=== PATIENT | male | born 1960 | race Caucasian/White ===

== ENCOUNTER 2017-03-20 14:28 | Emergency (ER) | payer BC, SELFPAY ==
--- NOTE | 2017-03-20 14:56 | HMH.EDUTC ---
[facility] [place] Clinical Impression: Right otitis media Qualifiers: Otitis media type: suppurative Chronicity: acute Recurrence: not specified as recurrent Spontaneous tympanic membrane rupture: without spontaneous rupture Qualified Code(s): H66.001 - Acute suppurative otitis media without spontaneous rupture of ear drum, right ear Disposition: Home, Self-Care Condition on Discharge: Good Instructions: DI for Otitis Media (Middle Ear Infection)-Child Prescriptions: Amoxicillin/Potassium Clav [Augmentin 875-125 Tablet] 1 tab PO Q12H 10 Days #20 tab methylPREDNISolone [Medrol] 4 mg PO DIRECTED 6 Days #1 tab.ds.pk Time of Disposition: 15:02 Medical Decision Making - Medical Records Medical records reviewed: Yes: I reviewed the patient's medical records. - Chaitanya Inquiry Pt receiving controlled substance: No [facility] [place] - General Stated complaint: ear pain Time Seen by Provider: 03/20/17 14:49 Mode of Arrival: Ambulatory Source of Information: Patient, Spouse Limitations: No Limitations HEENT Symptoms (Recalled from RN notes): Yes Resp Symptoms (Recalled from RN notes): No Skin Symptoms (Recalled from RN notes): No GI/ Symptoms (Recalled from RN notes): No MS Symptoms (Recalled from RN notes): No Card Symptoms (Recalled from RN notes): No Other (Recalled from RN notes): No - History of Present Illness Provider Complaint: Right sinus pain, right ear pain and right side of head has been hurting for about a week. No rash. Had similar episode in other ear a few months ago. No fever. Denies sore throat. Denies cough. Denies vomiting or diarrhea. - Related Data Previous Rx's Medication Instructions Recorded meloxicam 7.5 mg tablet 7.5 mg PO DAILY PRN #30 tab 03/18/17 Amoxicillin/Potassium Clav 1 tab PO Q12H 10 Days #20 tab 03/20/17 [Augmentin 875-125 Tablet] methylPREDNISolone [Medrol] 4 mg PO DIRECTED 6 Days #1 03/20/17 tab.ds.pk Allergies Allergy/AdvReac Type Severity Reaction Status Date / Time No Known Allergies Allergy Unverified 03/18/17 13:00 [facility] History I have reviewed the patient's past medical history: Yes ROS Obtained: Yes All systems reviewed & no additional complaints - Constitutional Constitutional: Denies body ache, Denies chills, Denies fever(s) - ENT Ears, Nose, Mouth, and Throat: Reports otalgia, Reports nasal congestion, Denies sore throat - Respiratory Respiratory: No cough - Integumentary/Breasts Skin/Breast: Denies rash Physical Exam - General General appearance: alert, in no apparent distress - Head Head exam: atraumatic, normocephalic, normal inspection - Eye Eye exam: Present: normal appearance, PERRL, EOMI - ENT ENT exam: Present: normal exam, normal oropharynx, mucous membranes moist, normal external ear exam - Expanded ENT Exam TM/Canal exam: Right TM: erythema, bulging - Neck Neck exam: Present: normal inspection, full ROM, trachea midline. Absent: meningismus, lymphadenopathy - Chest Chest inspection: Present: normal inspection, symmetric chest wall rise. Absent: tenderness - Respiratory Respiratory exam: Present: normal lung sounds bilaterally. Absent: respiratory distress - Cardiovascular Cardiovascular exam: Present: regular rate, normal rhythm. Absent: JVD - Abdominal Exam Abdominal exam: Present: soft, normal bowel sounds. Absent: distention, tenderness, guarding - Extremities Exam Extremities exam: Present: normal inspection, full ROM, normal capillary refill. Absent: calf tenderness - Back Exam Back exam: Present: normal inspection. Absent: tenderness - Neurological Exam Neurological exam: Present: alert, oriented X3 - Psychiatric Psychiatric exam: Present: normal affect, normal mood - Skin Skin exam: Present: warm, dry, intact, normal color - Lymphatic Lymphatic Findings: no adenopathy
--- NOTE | 2017-03-20 15:00 | ED_ITS ---
[facility] [place] Clinical Impression: Right otitis media Qualifiers: Otitis media type: suppurative Chronicity: acute Recurrence: not specified as recurrent Spontaneous tympanic membrane rupture: without spontaneous rupture Qualified Code(s): H66.001 - Acute suppurative otitis media without spontaneous rupture of ear drum, right ear Disposition: Home, Self-Care Condition on Discharge: Good Instructions: DI for Otitis Media (Middle Ear Infection)-Child Prescriptions: Amoxicillin/Potassium Clav [Augmentin 875-125 Tablet] 1 tab PO Q12H 10 Days #20 tab methylPREDNISolone [Medrol] 4 mg PO DIRECTED 6 Days #1 tab.ds.pk Time of Disposition: 15:02 Medical Decision Making - Medical Records Medical records reviewed: Yes: I reviewed the patient's medical records. - Chaitanya Inquiry Pt receiving controlled substance: No [facility] [place] - General Stated complaint: ear pain Time Seen by Provider: 03/20/17 14:49 Mode of Arrival: Ambulatory Source of Information: Patient, Spouse Limitations: No Limitations HEENT Symptoms (Recalled from RN notes): Yes Resp Symptoms (Recalled from RN notes): No Skin Symptoms (Recalled from RN notes): No GI/ Symptoms (Recalled from RN notes): No MS Symptoms (Recalled from RN notes): No Card Symptoms (Recalled from RN notes): No Other (Recalled from RN notes): No - History of Present Illness Provider Complaint: Right sinus pain, right ear pain and right side of head has been hurting for about a week. No rash. Had similar episode in other ear a few months ago. No fever. Denies sore throat. Denies cough. Denies vomiting or diarrhea. - Related Data Previous Rx's Medication Instructions Recorded meloxicam 7.5 mg tablet 7.5 mg PO DAILY PRN #30 tab 03/18/17 Amoxicillin/Potassium Clav 1 tab PO Q12H 10 Days #20 tab 03/20/17 [Augmentin 875-125 Tablet] methylPREDNISolone [Medrol] 4 mg PO DIRECTED 6 Days #1 03/20/17 tab.ds.pk Allergies Allergy/AdvReac Type Severity Reaction Status Date / Time No Known Allergies Allergy Unverified 03/18/17 13:00 [facility] [place] History I have reviewed the patient's past medical history: Yes ROS Obtained: Yes All systems reviewed & no additional complaints - Constitutional Constitutional: Denies body ache, Denies chills, Denies fever(s) - ENT Ears, Nose, Mouth, and Throat: Reports otalgia, Reports nasal congestion, Denies sore throat - Respiratory Respiratory: No cough - Integumentary/Breasts Skin/Breast: Denies rash Physical Exam - General General appearance: alert, in no apparent distress - Head Head exam: atraumatic, normocephalic, normal inspection - Eye Eye exam: Present: normal appearance, PERRL, EOMI - ENT ENT exam: Present: normal exam, normal oropharynx, mucous membranes moist, normal external ear exam - Expanded ENT Exam TM/Canal exam: Right TM: erythema, bulging - Neck Neck exam: Present: normal inspection, full ROM, trachea midline. Absent: meningismus, lymphadenopathy - Chest Chest inspection: Present: normal inspection, symmetric chest wall rise. Absent : tenderness - Respiratory Respiratory exam: Present: normal lung sounds bilaterally. Absent: respiratory distress - Cardiovascular Cardiovascular exam: Present: regular rate, normal rhythm. Absent: JVD - Abdominal Exam Abdominal exam: Present: soft, normal bowel sounds. Absent: distention, tenderness, guarding - Extrem
[2017-03-20 15:12] VITALS: BP 126/64; PULSE 68; RESP 20; TEMP 36.7; O2SAT 96; BMI 28.7
[2017-03-20 15:15] VITALS: BP 126/64; PULSE 68; RESP 20; TEMP 36.7; O2SAT 96
== END 2017-03-20 15:16 | disposition home or self-care (01) ==
PROVIDERS: Emergency Provider Physician Assistant
DX: H66.001 Acute suppurative otitis media without spontaneous rupture of ear drum, right ear (principal)
CPT/HCPCS: 99202

== ENCOUNTER → 2017-07-16 09:56 | Outpatient (CLI) | payer BC, SELFPAY ==
--- NOTE | 2017-07-16 12:00 | CT_ITS ---
CT abdomen pelvis wo con Ordering Physician: Daniel Scanlon Patient Age: 56 years: Male HISTORY: ITS.REASON: LLQ PAIN Left lower quadrant pain 2.5 months. Possible diverticulitis. Oral contrast only. No IV. TECHNIQUE: Helical CT scanning performed at abdomen and pelvis oral contrast only. No IV contrast. Axial sagittal and coronal reconstructions performed on CT workstation. All CT scans at this facility used one or more dose reduction techniques , viz: automatic exposure control, ma/Kv adjustment per patient's size, (including targeted exam where dose matched to the indication; i.e. head); or iterative reconstruction technique COMPARISON :None FINDINGS Lung bases. Mild bibasilar dependent atelectasis. No prominent findings. No pleural effusion. Heart normal size Suggestion of small sliding hiatal hernia abdomen./Pelvis Noncontrast images of the liver, pancreas kidneys unremarkable. Spleen normal size, w/ numerous granulomatous calcifications GI tract/findings abnormalities although this may reflect diverticulitis proximal sigmoid colon other entities will need to be excluded subsequently.: . Mild Inflammation, at and about proximal sigmoid colon. Roughly 11-12 mm area focal bulging posteriorly, superiorly from the proximal sigmoid colon which at this point most likely reflects an inflamed diverticulum. Haziness is most pronounced pericolic fat about this feature. There is mild wall thickening throughout this region of sigmoid colon but which may reflect some residual colitis associated.. Would be very important to perform colonoscopy in follow-up to exclude associated or underlying pathology Minor fatty wall thickening more proximally at descending colon nonspecific but can reflect mild chronic inflammation at. Oral contrast is reached the right colon. The right colon unremarkable. Small bowel: Increased fluid with a few air-fluid levels within slightly distended small bowel loops most notable evident LLQ. Likely reflect mild ileus in this region towards left lower quadrant.. Mesentery: No mesenteric adenopathy but there is Very subtle groundglass hazy appearance seen at the root of the mesentery on but nonspecific. Scattered moderate retroperitoneal lymph nodes bilaterallyq x-rays the most evident scattered nodes are seen just posterior to the IVC with one of the larger nodes measuring up to 16 mm x 12 mm immediate posterior to the IVC. These will warrant follow-up to exclude any developing adenopathy. Smaller nodes are seen at the left para-aortic region nonspecific. Aorta dilates very slightly up to 2.3 cm maximally just above the aortic bifurcation Osseous structures. No prominent findings. A small 7.5 mm lucent area at the right pedicle T12 on axial image 27 is noted. Nonspecific could merely be a small cyst or volume averaging which should be catheter in mind if the patient should develop any additional pain or other pathology discovered elsewhere IMPRESSION 1. Focal area bulging from proximal sigmoid colon,. Inflammation is seen about this region as well as throughout the adjacent thickened sigmoid colon suspect diverticulitis at this point, but follow-up will be very important to exclude other pathology (Although this may be due to diverticular disease and does not have a definitive appearance for such. Patient has few if any additional diverticula sigmoid colon, & it does not have ideal typical fluid-filled inflamed diverticulum appearance. Still this should initially treated & addressed as area limited acute diverticulitis but it will be very important for follow-up colonoscopy to exclude associated or underlying pathology ..) Wall thickening and mild pericolic inflammation is seen about this region. 2. A few air-fluid levels within
== END ==
PROVIDERS: PCP Internal Medicine; Visit Provider Internal Medicine
DX: R10.32 Left lower quadrant pain (principal)
CPT/HCPCS: 74176

== ENCOUNTER 2017-09-22 09:46 | Outpatient (CLI) | payer BC, SELFPAY ==
[2017-09-22 09:50] VITALS: BP 118/71; PULSE 61; RESP 20; TEMP 36.4; O2SAT 98
[2017-09-22 10:02] VITALS: BMI 29.0
[2017-09-22 10:40] VITALS: BP 129/69; PULSE 61; RESP 20; TEMP 36.4; O2SAT 99
[2017-09-22 10:53] LABS: Blood Urea Nitrogen 13 mg/dL (7-18); Calcium 9.2 mg/dL (8.5-10.1); Carbon Dioxide 27 mmol/L (21.0-32.0); Chloride 104 mmol/L (98-107); Creatinine Clearance Estimated 102 mL/min (0-300); Creatinine,Serum 1.07 mg/dL (0.70-1.30); Estimated Glomerular Filt Rate 72 ml/min (>60); GFR (African American) 87 ML/MIN (>60); Glucose 103 mg/dL (74-106); Sodium 140 mmol/L (136-145)
[2017-09-22 10:55] VITALS: BP 139/87; PULSE 61; RESP 20; TEMP 36.4; O2SAT 98
--- NOTE | 2017-09-22 11:19 | XR_ITS ---
XR chest portable PICC plac HISTORY: ITS.REASON: PICC line placement ORDERING PHYSICIAN: Roshan Guzman PATIENT AGE: 56 years COMPARISON: None FINDINGS: Right upper extremity PICC line has been placed. The tip is in good position in region of the superior vena cava. Unremarkable cardiovascular structures with clear lungs. No acute bony anomalies IMPRESSION: Good placement of PICC line with no acute cardiac or pulmonary findings
[2017-09-22 11:25] VITALS: BP 138/78; PULSE 63; RESP 20; TEMP 36.4; O2SAT 99
[2017-09-22 11:48] VITALS: BP 128/76; PULSE 60; RESP 20; TEMP 36.4; O2SAT 99
== END 2017-09-22 11:49 | disposition home or self-care (01) ==
LOC: INF 09:48
PROVIDERS: PCP Internal Medicine; Visit Provider Colon & Rectal Surgery
DX: K57.92 Diverticulitis of intestine, part unspecified, without perforation or abscess without bleeding (principal)
CPT/HCPCS: 36569; 71045; 80048; 96365; C1751; J1335

== ENCOUNTER 2017-09-23 09:51 | Outpatient (CLI) | payer BC, SELFPAY ==
[2017-09-23 10:06] VITALS: BP 119/74; PULSE 61; RESP 18; TEMP 36.6; O2SAT 96
[2017-09-23 10:50] VITALS: BP 129/79; PULSE 62; RESP 18; TEMP 36.6; O2SAT 97
== END 2017-09-23 10:50 | disposition home or self-care (01) ==
LOC: INF 09:51
PROVIDERS: PCP Internal Medicine; Visit Provider Colon & Rectal Surgery
DX: K57.92 Diverticulitis of intestine, part unspecified, without perforation or abscess without bleeding (principal)
CPT/HCPCS: 96365; J1335

== ENCOUNTER 2017-09-24 11:06 | Outpatient (CLI) | payer BC, SELFPAY ==
[2017-09-24 11:08] VITALS: BP 141/78; PULSE 72; RESP 20; TEMP 36.4; O2SAT 99; BMI 29.0
[2017-09-24 11:57] VITALS: BP 112/71; PULSE 64; RESP 20; TEMP 36.6; O2SAT 98
== END 2017-09-24 11:59 | disposition home or self-care (01) ==
LOC: INF 11:06
PROVIDERS: PCP Internal Medicine; Visit Provider Colon & Rectal Surgery
DX: K57.92 Diverticulitis of intestine, part unspecified, without perforation or abscess without bleeding (principal)
CPT/HCPCS: 96365; J1335

== ENCOUNTER 2017-09-25 07:42 | Outpatient (CLI) | payer BC, SELFPAY ==
[2017-09-25 08:20] VITALS: BP 123/86; PULSE 74; RESP 16; TEMP 36.7; O2SAT 98; BMI 29.0
[2017-09-25 09:20] VITALS: BP 128/73; PULSE 77; RESP 18; TEMP 36.7; O2SAT 99
== END 2017-09-25 09:30 | disposition home or self-care (01) ==
LOC: INF 07:43
PROVIDERS: PCP Internal Medicine; Visit Provider Colon & Rectal Surgery
DX: K57.92 Diverticulitis of intestine, part unspecified, without perforation or abscess without bleeding (principal)
CPT/HCPCS: 96365; J1335

== ENCOUNTER → 2017-09-26 08:30 | Outpatient (CLI) | payer BC, SELFPAY ==
[2017-09-26 08:46] VITALS: BP 109/62; PULSE 71; RESP 18; TEMP 36.8; O2SAT 95; BMI 29.0
[2017-09-26 09:30] VITALS: BP 149/83; PULSE 61; RESP 18; TEMP 36.8; O2SAT 97
== END ==
PROVIDERS: PCP Internal Medicine; Visit Provider Colon & Rectal Surgery
DX: K57.92 Diverticulitis of intestine, part unspecified, without perforation or abscess without bleeding (principal)
CPT/HCPCS: 96365; J1335

== ENCOUNTER 2017-09-27 11:35 | Outpatient (CLI) | payer BC, SELFPAY ==
[2017-09-27 12:05] VITALS: BP 117/69; PULSE 77; RESP 18; O2SAT 96
[2017-09-27 12:45] VITALS: BP 113/66; PULSE 70; RESP 18
== END 2017-09-27 13:00 | disposition home or self-care (01) ==
LOC: INF 11:55
PROVIDERS: PCP Internal Medicine; Visit Provider Colon & Rectal Surgery
DX: K57.92 Diverticulitis of intestine, part unspecified, without perforation or abscess without bleeding (principal)
CPT/HCPCS: 96365; J1335

== ENCOUNTER 2017-09-28 13:19 | Outpatient (CLI) | payer BC, SELFPAY ==
[2017-09-28 13:15] VITALS: BP 118/69; PULSE 79; RESP 18; TEMP 36.7; O2SAT 96; BMI 29.0
[2017-09-28 14:08] VITALS: BP 122/67; PULSE 81; RESP 18; O2SAT 97
[2017-09-28 14:35] VITALS: BP 116/64; PULSE 77; RESP 18; O2SAT 97
== END 2017-09-28 14:40 | disposition home or self-care (01) ==
LOC: INF 13:19
PROVIDERS: PCP Internal Medicine; Visit Provider Colon & Rectal Surgery
DX: K57.92 Diverticulitis of intestine, part unspecified, without perforation or abscess without bleeding (principal)
CPT/HCPCS: 96365; J1335

== ENCOUNTER 2017-09-29 08:49 | Outpatient (CLI) | payer BC, SELFPAY ==
[2017-09-29 09:21] VITALS: BP 114/73; PULSE 68; RESP 18; TEMP 36.5; O2SAT 99
[2017-09-29 09:46] VITALS: BP 117/67; PULSE 69; RESP 18; O2SAT 99
[2017-09-29 09:55] VITALS: BP 116/69; PULSE 64; RESP 18; O2SAT 99
== END 2017-09-29 10:00 | disposition home or self-care (01) ==
LOC: INF 08:49
PROVIDERS: PCP Internal Medicine; Visit Provider Colon & Rectal Surgery
DX: K57.92 Diverticulitis of intestine, part unspecified, without perforation or abscess without bleeding (principal)
CPT/HCPCS: 96365; J1335

== ENCOUNTER 2017-09-30 08:52 | Outpatient (CLI) | payer BC, SELFPAY ==
[2017-09-30 09:08] VITALS: BP 125/70; PULSE 68; RESP 18; TEMP 36.7; O2SAT 97
[2017-09-30 09:38] VITALS: BP 122/69; PULSE 69; RESP 18; O2SAT 97
[2017-09-30 09:45] VITALS: BP 121/72; PULSE 65; RESP 18; O2SAT 97
== END 2017-09-30 09:50 | disposition home or self-care (01) ==
LOC: INF 08:52
PROVIDERS: PCP Internal Medicine; Visit Provider Colon & Rectal Surgery
DX: K57.92 Diverticulitis of intestine, part unspecified, without perforation or abscess without bleeding (principal)
CPT/HCPCS: 96365; J1335

== ENCOUNTER 2017-10-01 08:14 | Outpatient (CLI) | payer BC, SELFPAY ==
[2017-10-01 08:35] VITALS: BP 150/95; PULSE 79; RESP 18; TEMP 36.6; O2SAT 96
[2017-10-01 09:05] VITALS: BP 134/79; PULSE 67; RESP 18; O2SAT 98
[2017-10-01 09:20] VITALS: BP 131/77; PULSE 69; RESP 18; O2SAT 97
== END 2017-10-01 09:20 | disposition home or self-care (01) ==
LOC: INF 08:14
PROVIDERS: PCP Internal Medicine; Visit Provider Colon & Rectal Surgery
DX: K57.92 Diverticulitis of intestine, part unspecified, without perforation or abscess without bleeding (principal)
CPT/HCPCS: 96365; J1335

== ENCOUNTER → 2017-10-02 08:05 | Outpatient (CLI) | payer BC, SELFPAY ==
[2017-10-02 08:05] VITALS: BP 119/72; PULSE 64; RESP 18; TEMP 36.7; O2SAT 97
[2017-10-02 08:43] VITALS: BP 125/72; PULSE 69; RESP 18; TEMP 36.8; O2SAT 98; BMI 29.2
== END ==
PROVIDERS: PCP Internal Medicine; Visit Provider Colon & Rectal Surgery
DX: K57.92 Diverticulitis of intestine, part unspecified, without perforation or abscess without bleeding (principal)
CPT/HCPCS: 96365; G0463; J1335

== ENCOUNTER → 2017-10-03 08:04 | Outpatient (CLI) | payer BC, SELFPAY ==
[2017-10-03 08:17] VITALS: BP 122/75; PULSE 70; RESP 20; TEMP 36.6; O2SAT 95; BMI 29.2
[2017-10-03 08:56] VITALS: BP 115/83; PULSE 63; RESP 18; TEMP 36.7; O2SAT 95
== END ==
PROVIDERS: PCP Internal Medicine; Visit Provider Colon & Rectal Surgery
DX: K57.92 Diverticulitis of intestine, part unspecified, without perforation or abscess without bleeding (principal)
CPT/HCPCS: 96365; G0463; J1335

== ENCOUNTER 2017-10-04 08:18 | Outpatient (CLI) | payer BC, SELFPAY ==
[2017-10-04 08:28] VITALS: BP 124/75; PULSE 66; RESP 18; TEMP 36.6; O2SAT 95
[2017-10-04 08:58] VITALS: BP 119/74; PULSE 67; RESP 18; O2SAT 95
[2017-10-04 09:12] VITALS: BP 120/71; PULSE 69; RESP 18; O2SAT 96
== END 2017-10-04 09:20 | disposition home or self-care (01) ==
LOC: INF 08:18
PROVIDERS: PCP Internal Medicine; Visit Provider Colon & Rectal Surgery
DX: K57.92 Diverticulitis of intestine, part unspecified, without perforation or abscess without bleeding (principal)
CPT/HCPCS: 96365; J1335

== ENCOUNTER 2017-10-05 08:28 | Outpatient (CLI) | payer BC, SELFPAY ==
[2017-10-05 08:36] VITALS: BP 123/71; PULSE 71; RESP 18; TEMP 36.6; O2SAT 98
[2017-10-05 09:06] VITALS: BP 121/76; PULSE 76; RESP 18; O2SAT 97
[2017-10-05 09:25] VITALS: BP 124/71; PULSE 74; RESP 18; O2SAT 97
== END 2017-10-05 09:30 | disposition home or self-care (01) ==
LOC: INF 08:29
PROVIDERS: PCP Internal Medicine; Visit Provider Colon & Rectal Surgery
DX: K57.92 Diverticulitis of intestine, part unspecified, without perforation or abscess without bleeding (principal)
CPT/HCPCS: 96365; J1335

== ENCOUNTER → 2018-01-06 07:39 | Outpatient (CLI) | payer BC, SELFPAY ==
--- NOTE | 2018-01-06 08:00 | CT_ITS ---
CT abdomen pelvis wo con CLINICAL INDICATION: Lymphadenopathy, follow-up diverticulitis, wall thickening of the colon ITS.REASON: LYMPHADENOPATHY (ABNORMAL AREA T-12 VERTEBRE ORDERING PHYSICIAN: Daniel Scanlon PATIENT AGE: 57 years COMPARISON: 07/16/2017 TECHNIQUE: Axial images obtained with sagittal and coronal reformats. All CT scans at the facility use one or more dose reduction, viz: automated exposure control, ma/kV adjustment per patient size (including targeted exams where dose is matched to indication, i.e. head), or iterative reconstruction technique. PROCEDURE: Oral Contrast: None IV Contrast: None . FINDINGS: No acute finding in the lung bases. There is a small hiatal hernia. The liver, gallbladder, spleen, adrenal glands, pancreas, and kidneys have an unremarkable unenhanced appearance. There is mild diffuse infiltration of the central mesenteric fat as before consistent with taryn mesenteric sign which is not significantly changed. Postsurgical changes are present in the right lower abdominal wall. There has been a prior ectomy reported. A mild amount of retained colonic feces. There are scattered small lymph nodes in the retroperitoneum and within the abdomen which do not appear significantly changed. There has been interval colonic surgery with partial colectomy of the sigmoid region. Anastomosis here has an unremarkable CT appearance. Lucency once again noted along the pedicle on the right T12 and is not significantly changed. No acute bony anomalies IMPRESSION: 1. Postsurgical changes of the sigmoid colon. 2. No change in the taryn mesenteric appearance. This is nonspecific and may be seen with multiple etiologies such as mesenteric panniculitis, neoplasm, cirrhosis, mesenteric venous thrombosis, or may only be idiopathic.. 3. No change in the lucent lesion of the pedicle on the right at T12 possibly due to a small hemangioma
== END ==
PROVIDERS: PCP Internal Medicine; Visit Provider Internal Medicine
DX: R59.1 Generalized enlarged lymph nodes (principal)
CPT/HCPCS: 74176

== ENCOUNTER → 2018-03-15 08:09 | Outpatient (POV) | payer BC, SELFPAY | PROVIDERS: Visit Provider Dermatology | DX: Z00.00 Encounter for general adult medical examination without abnormal findings (principal) ==

== ENCOUNTER → 2018-05-10 08:45 | Outpatient (POV) | payer BC, SELFPAY | PROVIDERS: Visit Provider Dermatology | DX: Z00.00 Encounter for general adult medical examination without abnormal findings (principal) ==

== ENCOUNTER → 2018-05-24 11:01 | Outpatient (POV) | payer BC, SELFPAY | PROVIDERS: Visit Provider Otolaryngology | DX: Z00.00 Encounter for general adult medical examination without abnormal findings (principal) ==

== ENCOUNTER → 2019-09-05 09:43 | Outpatient (POV) | payer BC, SELFPAY | PROVIDERS: PCP Internal Medicine; Visit Provider Dermatology | DX: Z00.00 Encounter for general adult medical examination without abnormal findings (principal) ==

== ENCOUNTER → 2019-09-19 07:46 | Outpatient (CLI) | payer BC, SELFPAY ==
--- NOTE | 2019-09-19 07:49 | MR_ITS ---
PROCEDURE: MR LUMBAR SPINE WO CON CLINICAL INDICATION: LOW BACK PAIN LBP worse on RT side. X2-3yrs. RT leg numbness. No prior. COMPARISON: No exams were available for comparison TECHNIQUE: Standard multiplanar multiecho sequences are performed without contrast. 3-D MIP and myelographic images are also rendered and reviewed FINDINGS: There is normal alignment. The spinal cord ends at the T12-L1 level. L1-L2: Unremarkable. L2-L3: Unremarkable. L3-L4: Unremarkable. L4-5: Minimal bulging disc with mild facet and ligamentum hypertrophy. L5-S1: Mild bulging disc with mild degenerative disc disease. There is 4 mm anterolisthesis of L5 and there is facet and ligamentum hypertrophy with mild bilateral foraminal narrowing. No canal stenosis or extruded herniated disc is evident. There are scattered T1 and T2 hyperintensities of the vertebral bodies consistent with incidental lipomas and/or lipid rich hemangioma. IMPRESSION: 1. There are mild degenerative changes with mild facet and ligamentum hypertrophy 2. Mild bulging disc with mild degenerative disc disease at L5-S1. There is 4 mm anterolisthesis of L5 and there is facet and ligamentum hypertrophy with mild bilateral foraminal narrowing slightly greater on the left. 3. No extruded herniated disc or canal stenosis Dictated b Jaspreet Davison MD 09/21/2019 10:36 Jaspreet Davison MD in [place] 09/21/2019 10:36
== END ==
PROVIDERS: PCP Internal Medicine; Visit Provider Internal Medicine
DX: M54.5 Low back pain (principal)
CPT/HCPCS: 72148; 76376

== ENCOUNTER → 2019-10-03 07:57 | Outpatient (POV) | payer BC, SELFPAY | PROVIDERS: Visit Provider Dermatology | DX: Z00.00 Encounter for general adult medical examination without abnormal findings (principal) ==

== ENCOUNTER → 2020-12-10 12:18 | Outpatient (CLI) | payer BC, SELFPAY | PROVIDERS: PCP Internal Medicine; Visit Provider Nurse Practitioner | DX: Z20.822 Contact with and (suspected) exposure to COVID-19 (principal) | CPT/HCPCS: C9803; U0003; U0005 ==

== ENCOUNTER → 2021-01-10 14:24 | Outpatient (CLI) | payer BC, SELFPAY ==
[2021-01-10 16:26] LABS: Alanine Aminotransferase 35 U/L (12-78); Albumin Level 4.3 g/dl (3.5-5.0); Albumin/Globulin Ratio 1.7 (1.1-1.8); Alkaline Phosphatase 103 U/L (38-126); Anion Gap 10.5 mEq/L (5-15); Aspartate Amino Transferase 39 U/L (17-59); Bilirubin,Total 0.4 mg/dl (0.2-1.3); Blood Urea Nitrogen 16 mg/dl (9-20); Calcium 9.5 mg/dl (8.4-10.2); Carbon Dioxide 28 mmol/L (22.0-30.0); Chloride 104 mmol/L (98-107); Chol/HDL Ratio 4.7 (1-3.5); Cholesterol 168 mg/dl (140-200); Estimated Glomerular Filt Rate 87 ml/min (>60); GFR (African American) 105 ML/MIN (>60); Globulin 2.6 g/dL (1.3-3.2); Glucose 83 mg/dl (74-100); HDL Cholesterol 36 mg/dl (40-60); Potassium 4.5 mmoL/L (3.5-5.1); Sodium 138 mmol/L (136-145); Total Protein,Serum 6.9 g/dl (6.3-8.2); Triglycerides 187 mg/dl (30-150); VLDL Cholesterol 37 mg/dL (0-40)
[2021-01-10 16:37] LABS: Direct LDL Cholesterol 94.33 mg/dL (100-129)
[2021-01-10 18:13] LABS: 25-OH Vitamin D, Total 55.6 ng/mL (30-100)
== END ==
PROVIDERS: Visit Provider Internal Medicine
DX: E78.5 Hyperlipidemia, unspecified (principal); E55.9 Vitamin D deficiency, unspecified; E29.1 Testicular hypofunction; N40.1 Benign prostatic hyperplasia with lower urinary tract symptoms
CPT/HCPCS: 80053; 80061; 82306

== ENCOUNTER → 2021-03-13 08:09 | Outpatient (CLI) | payer BC, SELFPAY | PROVIDERS: PCP Internal Medicine; Visit Provider Nurse Practitioner | DX: Z20.822 Contact with and (suspected) exposure to COVID-19 (principal) | CPT/HCPCS: C9803; U0003; U0005 ==

== ENCOUNTER → 2021-03-14 11:30 | Outpatient (CLI) | payer BC, SELFPAY | PROVIDERS: PCP Internal Medicine; Visit Provider Nurse Practitioner | DX: U07.1 COVID-19 (principal) | CPT/HCPCS: C9803; U0003; U0005 ==

== ENCOUNTER → 2021-07-11 12:03 | Outpatient (CLI) | payer BC, SELFPAY ==
[2021-07-11 12:49] LABS: Basophils % 0.6 % (0.1-2.0); Eosinophils # 0.2 K/mm3 (0.0-0.4); Hematocrit 44.7 % (42.0-52.0); Hemoglobin 15.6 g/dL (14.1-18.0); Lymphocytes # 1.7 K/mm3 (0.7-4.5); Lymphocytes % 29.9 % (10-50); Mean Corpuscular Volume 88.5 fl (80-94); Monocytes # 0.8 K/mm3 (0.1-1.0); Monocytes % 14.8 % (1.7-9.3); Neutrophils # 2.9 K/mm3 (1.8-7.8); Neutrophils % 51.6 % (37.0-80.0); Platelet Count 201 K/mm3 (142-424); Red Blood Count 5.05 M/mm3 (4.60-6.20); Red Cell Distribution Width 12.9 % (11.5-17.5); White Blood Count 5.7 K/mm3 (4.8-10.8)
[2021-07-11 13:13] LABS: Alanine Aminotransferase 25 U/L (12-78); Albumin/Globulin Ratio 1.5 (1.1-1.8); Alkaline Phosphatase 124 U/L (38-126); Aspartate Amino Transferase 30 U/L (17-59); Blood Urea Nitrogen 12 mg/dl (9-20); Calcium 9.3 mg/dl (8.4-10.2); Carbon Dioxide 25 mmol/L (22.0-30.0); Chloride 105 mmol/L (98-107); Chol/HDL Ratio 5.3 (1-3.5); Cholesterol 154 mg/dl (140-200); Estimated Glomerular Filt Rate 87 ml/min (>60); GFR (African American) 105 ML/MIN (>60); Globulin 2.6 g/dL (1.3-3.2); Glucose 103 mg/dl (74-100); HDL Cholesterol 29 mg/dl (40-60); Sodium 138 mmol/L (136-145); Total Protein,Serum 6.6 g/dl (6.3-8.2); Triglycerides 219 mg/dl (30-150); VLDL Cholesterol 44 mg/dL (0-40)
[2021-07-11 13:22] LABS: Bilirubin,Total < 0.1 mg/dl (0.2-1.3)
[2021-07-11 13:23] LABS: Direct LDL Cholesterol 80.86 mg/dL (100-129)
[2021-07-11 13:30] LABS: 25-OH Vitamin D, Total 41.2 ng/mL (30-100)
[2021-07-12 08:32] LABS: Testosterone,Total 400 ng/dL (264-916)
== END ==
PROVIDERS: PCP Internal Medicine; Visit Provider Internal Medicine
DX: E03.9 Hypothyroidism, unspecified (principal); K57.30 Diverticulosis of large intestine without perforation or abscess without bleeding; E55.9 Vitamin D deficiency, unspecified; E78.5 Hyperlipidemia, unspecified; E29.1 Testicular hypofunction; N40.1 Benign prostatic hyperplasia with lower urinary tract symptoms; Z12.5 Encounter for screening for malignant neoplasm of prostate
CPT/HCPCS: 80053; 80061; 82306; 84403; 85025; G0103

== ENCOUNTER → 2021-10-28 08:38 | Outpatient (POV) | payer BC, SELFPAY | PROVIDERS: Visit Provider Dermatology | DX: Z00.00 Encounter for general adult medical examination without abnormal findings (principal) ==

== ENCOUNTER → 2022-03-09 15:39 | Outpatient (CLI) | payer BC, SELFPAY ==
--- NOTE | 2022-03-09 15:55 | XR_ITS ---
FINAL REPORT TECHNIQUE: Single view chest CLINICAL HISTORY: COVID FINDINGS: A single view of the chest was obtained. The heart and mediastinum are within normal limits. There are mild chronic changes. The lungs are otherwise clear. There is no pneumothorax. Osseous structures are unremarkable. IMPRESSION: No acute cardiopulmonary process. Reviewed, Interpreted and Dictated by Juan Collazo MD Transcribed by Lucina Guardado Authenticated and [facility]
[2022-03-09 15:56] LABS: Adenovirus,PCR Not Detected (NotDetected); Bordetella Pertussis Not Detected (NotDetected); Chlamydophila Pneumoniae, PCR Not Detected (NotDetected); Coronavirus 19, PCR Not Detected (NotDetected); Coronavirus 229E Not Detected (NotDetected); Coronavirus NL63 Not Detected (NotDetected); Coronavirus OC43 Not Detected (NotDetected); Coronovirus HKU1,PCR Not Detected (NotDetected); Human Metapneumovirus Not Detected (NotDetected); Influenza A, PCR Not Detected (NotDetected); Influenza AH1, 2009 Not Detected (NotDetected); Influenza AH1, PCR Not Detected (NotDetected); Influenza AH3,PCR Not Detected (NotDetected); Influenza B, PCR Not Detected (NotDetected); Mycoplasma Pneumoniae, PCR Not Detected (NotDetected); Parainfluenza 1, PCR Not Detected (NotDetected); Parainfluenza 2, PCR Not Detected (NotDetected); Parainfluenza 3, PCR Not Detected (NotDetected); Parainfluenza 4, PCR Not Detected (NotDetected); Respiratory Syncytial Virus Not Detected (NotDetected); Rhinovirus/Enterovirus Not Detected (NotDetected)
== END ==
LOC: COVID.OUT 15:41
PROVIDERS: PCP Internal Medicine; Visit Provider Internal Medicine
DX: Z20.822 Contact with and (suspected) exposure to COVID-19 (principal)
CPT/HCPCS: 71045; 87581; 87632; 87798; C9803; U0003; U0005

== ENCOUNTER → 2022-04-09 08:11 | Outpatient (CLI) | payer BC, SELFPAY ==
--- NOTE | 2022-04-09 08:19 | CT_ITS ---
FINAL REPORT TECHNIQUE: Thin section axial CT images with coronal and sagittal reformats were performed through the neck. This study was performed with techniques to keep radiation doses as low as reasonably achievable (ALARA). Individualized dose reduction techniques using automated exposure control or adjustment of mA and/or kV according to the patient''s size were employed. CLINICAL HISTORY: cervical lymphadenopathy COMPARISON: none FINDINGS: Exam is limited without IV contrast. Nasopharynx, oropharynx, epiglottis, and larynx are unremarkable. The thyroid is homogeneous. There is a small soft tissue nodule in the right parotid gland which could represent small intraparotid lymph node. Submandibular salivary glands are unremarkable. There are mildly enlarged right cervical lymph nodes. Posterior triangle lymph node measures 1.8 cm in long axis. There are small bilateral posterior triangle lymph nodes. More concerning is mediastinal lymphadenopathy seen in images of the upper chest. For example a right paratracheal lymph node measures 3.7 cm. There is no acute osseous abnormality. IMPRESSION: Mild right cervical lymphadenopathy which is nonspecific and could be reactive or neoplastic. Mediastinal lymphadenopathy concerning for neoplasm, possibly lymphoma or metastatic disease. Recommend CT scan of the chest with contrast if not previously obtained. Reviewed, Interpreted and Dictated by Kellee Kamara MD Transcribed by Lluvia Jauregui Authenticated and [facility]
--- NOTE | 2022-04-09 08:19 | CT_ITS ---
FINAL REPORT TECHNIQUE: Thin section axial images were obtained through the paranasal sinuses without contrast. CLINICAL HISTORY: CERVICAL LYMPHADENOPTHY COMPARISON: none FINDINGS: There is mild mucoperiosteal thickening of the maxillary sinuses, ethmoid air cells, and right frontal sinuses. Mucous retention cyst or polyp in the right maxillary sinus measures 9 mm. Maxillary infundibulum are patent bilaterally. There is very mild left septal deviation. Mastoids are clear. There is no acute osseous abnormality. Remaining soft tissues are within normal limits. IMPRESSION: Mild mucoperiosteal thickening suggesting chronic sinusitis. No acute sinusitis. Reviewed, Interpreted and Dictated by Kellee Kaamra MD Transcribed by Lluvia Jauregui Authenticated and [facility]
== END ==
LOC: RAD 08:12
PROVIDERS: PCP Internal Medicine; Visit Provider Internal Medicine
DX: R59.0 Localized enlarged lymph nodes (principal)
CPT/HCPCS: 70486; 70490

== ENCOUNTER → 2022-04-15 09:40 | Outpatient (CLI) | payer BC, SELFPAY ==
--- NOTE | 2022-04-15 09:47 | CT_ITS ---
FINAL REPORT TECHNIQUE: Axial CT images of the chest were obtained with contrast. Coronal reformatted images were also obtained. This study was performed with techniques to keep radiation doses as low as reasonably achievable, (ALARA). Individualized dose reduction techniques using automated exposure control or adjustment of mA and/or KV according to the patient's size were employed. CLINICAL HISTORY: LYMPHEDEMA CHEST COMPARISON: none FINDINGS: There is widespread mediastinal and hilar adenopathy. Largest subcarinal node measures 4.7 cm in the largest hilar node measures 3 cm. There is left axillary adenopathy measuring up to 2 cm. On lung window images, no pulmonary mass or dominant pulmonary nodule is identified. There is mild emphysema. There is mild bibasilar atelectasis or scarring. Limited images of the upper abdomen reveal retroperitoneal adenopathy. There are multiple low-attenuation splenic masses measuring up to 3.3 cm. IMPRESSION: Widespread adenopathy and splenic masses most worrisome for neoplastic involvement in may represent lymphoma. Reviewed, Interpreted and Dictated by Garrett Urena III, MD Transcribed by Lluvia Jauregui Authenticated and . [facility]
== END ==
LOC: RAD 09:41
PROVIDERS: PCP Internal Medicine; Visit Provider Internal Medicine
DX: R59.0 Localized enlarged lymph nodes (principal); R93.5 Abnormal findings on diagnostic imaging of other abdominal regions, including retroperitoneum
CPT/HCPCS: 71260; Q9967

== ENCOUNTER 2023-02-12 10:26 | Emergency (ER) | payer BC, SELFPAY ==
[2023-02-12 10:45] VITALS: BP 148/98; PULSE 76; RESP 19; TEMP 36.6; O2SAT 98; BMI 29.9
--- NOTE | 2023-02-12 10:47 | ED_ITS ---
Discharge Plan Disposition Patient Disposition: Home, Self-Care Condition: Good Prescriptions Prescriptions: New ibuprofen [IBU] 800 mg tablet 800 mg PO Q8HP PRN (Reason: Moderate Pain) Qty: 30 0RF No Action atorvastatin 10 mg tablet 10 mg PO DAILY meloxicam 15 mg tablet 15 mg PO DAILY gabapentin 300 mg capsule 300 mg PO DAILY omeprazole 20 mg capsule,delayed release(DR/EC) 20 mg PO DAILY Referrals Follow up/Referrals: Daniel Scanlon MD [Primary Care Provider] - See instructions Anabel Phelps DPM [Staff Physician] - See instructions Activity Restrictions/Add. Instructions Additional Instructions/Restrictions: Rest the extremity, apply ice for 15 minutes as tolerated three or four times per day, Wear the cris wrap for compression, Elevate the extremity as tolerated while you are resting. Take ibuprofen for pain. Follow up with Dr. Phelps (podiatry). I put in a referral but you need to call her office and schedule an appointment. Follow up with your regular doctor. GO TO THE ER FOR ANY WORSENING SYMPTOMS Clinical Impressions Clinical Impression: Left ankle sprain, Sprain of left foot Instructions Patient Instructions: Ankle Sprain, DI for Ankle Sprain, DI for Foot Sprain Discharge ED Provider: Ortega Campbell [facility] General Stated complaint: ao 02/12/23 fell on left ankle Time Seen by Provider: 02/12/23 10:47 History of Present Illness Provider Complaint: He states that earlier today he twisted his left ankle and fell. Since then he has had left ankle and foot pain that is much worse when he tries to walk or bear weight on it. Related Data Home Medications Medication Instructions Recorded Confirmed atorvastatin 10 mg tablet 10 mg PO DAILY 02/12/23 02/12/23 gabapentin 300 mg capsule 300 mg PO DAILY 02/12/23 02/12/23 meloxicam 15 mg tablet 15 mg PO DAILY 02/12/23 02/12/23 omeprazole 20 mg capsule,delayed 20 mg PO DAILY 02/12/23 02/12/23 release Previous Rx's Medication Instructions Recorded ibuprofen 800 mg tablet (IBU) 800 mg PO Q8HP PRN Moderate Pain 02/12/23 #30 tabs Allergies Allergy/AdvReac Type Severity Reaction Status Date / Time No Known Allergies Allergy Verified 09/27/17 11:59 [facility] Disclaimer: The information contained in this section may have been updated after the patient was seen, as this information can be updated by other users. Medical History (Updated 02/12/23 @ 12:01 by Ortega Campbell APRN) No significant past medical history Social History Smoking Status: Current every day smoker tobacco type: cigarettes packs per day: 1 alcohol intake: never current occupational status: employed Travel in the last 8 weeks: None ROS Obtained: Yes All systems reviewed & no additional complaints except as documented Constitutional Constitutional: Denies chills and Denies fever(s) Eyes Eyes: Denies eye discharge ENT Ears, Nose, Mouth, and Throat: Denies dizziness, Denies otalgia and Denies sore throat Cardiovascular Cardiovascular: Denies chest pain Respiratory Respiratory: Denies shortness of breath, Denies chest congestion, Denies cough, Denies stridor and Denies wheezing Gastrointestinal Gastrointestingal: Denies nausea or vomiting Musculoskeletal Musculoskeletal: Reports as per HPI Integumentary/Breasts Skin/Breast: Denies rash Neurologic Neurologic: Denies dizziness and Denies paresthesias Allergic/Immunologic Allergic/Immunologic: Denies wheezing Physical Exam General General appearance: alert and in no apparent distress Head Head exam: atraumatic, normocephalic and normal inspection Eye Eye exam: Present normal appearance, PERRL and EOMI ENT ENT exam: Present normal exam, normal oropharynx, mucous membranes moist, TM's normal bilaterally and normal external ear exam Neck Neck exam: Present normal inspection, full ROM and trachea midline; Absent meningismus or lymphadenopathy Chest Chest inspection: Present normal inspection and symmetric chest wall rise; Absent tenderness Respiratory Respiratory exam: Present normal lung sounds bilaterally; Absent respiratory distress Cardiovascular Cardiovascular exam: Present regular rate and normal rhythm; Absent JVD Abdominal Exam Abdominal exam: Present soft and normal bowel sounds; Absent distention, tenderness or guarding Extremities Exam Extremities exam: Present normal capillary refill; Absent calf tenderness Expanded Lower Extremity Exam Left: Knee exam: Present normal inspection, full ROM and knee extension intact; Absent tenderness Lower leg exam: Present full ROM, tenderness and Achilles tendon intact; Absent swelling, abrasion, laceration, ecchymosis, deformity, crepitus, dislocation, erythema, palpable cord or Homans' sign Ankle exam: Present tenderness and swelling; Absent full ROM, abrasion, laceration, ecchymosis, deformity, crepitus, dislocation, erythema, tenderness over talofibular lig or anterior draw sign Foot/toe exam: Present tenderness and swelling; Absent full ROM, abrasion, laceration, ecchymosis, deformity, crepitus, dislocation, erythema, amputation, puncture wound, foreign body, calcaneal tenderness, tenderness at base of 5th metatarsal, nail avulsion or subungual hematoma Neurovascular/Tendon exam: Present normal capillary refill and normal fine/light touch; Absent pulse deficit, motor deficit, sensory deficit, tendon deficit or extremity cold to touch Gait: observed and limited by pain Back Exam Back exam: Present normal inspection; Absent tenderness Neurological Exam Neurological exam: Present alert and oriented X3 Psychiatric Psychiatric exam: Present normal affect and normal mood Skin Skin exam: Present warm, dry, intact and normal color Lymphatic Lymphatic Findings: no adenopathy Medical Decision Making Medical Records Medical records reviewed: No I reviewed the patient's medical records. Chaitanya Inquiry Pt receiving controlled substance: No Radiology Data #1: Image(s): Foot/Toes Image Reviewed: Yes I reviewed the patient's radiology image and Yes I have reviewed radiologist's interpretation Preliminary Findings: No Fracture Seen FINAL REPORT CLINICAL HISTORY: FALL FINDINGS: Left foot Three views were obtained. There is no acute fracture or dislocation. There is mild hallux valgus deformity. There are mild degenerative changes of the 1st metatarsophalangeal joint. No soft tissue abnormality is identified. IMPRESSION: Mild degenerative changes without acute bony abnormality. Reviewed, Interpreted and Dictated by Garrett Urena III, MD Transcribed by Stefani Issa Authenticated and ERN #2: Image(s): Ankle Image Reviewed: Yes I reviewed the patient's radiology image and Yes I have reviewed radiologist's interpretation Preliminary Findings: No Fracture Seen FINAL REPORT CLINICAL HISTORY: FALL FINDINGS: Left ankle Three views were obtained. There is no acute fracture or dislocation. The joint spaces appear normal. No soft tissue abnormality is identified. There is a plantar calcaneal spur. IMPRESSION: No acute process. Reviewed, Interpreted and Dictated by Garrett Urena III, MD Transcribed by Stefani Issa Authenticated and [facility] Procedures Risk/Benefits of Procedure(s) Were Explained: Yes Orthopedic Splinting/Casting Injury #1: Side: left Lower Extremity Injury Location: lower leg, ankle and foot Lower Extremity Immobilizer: AirCast Other Orthopedic Equipment: other (He has his own crutches) Post Cast/Splinting Neuro Status: intact and no change Post Cast/Splinting Vasc Status: intact and no change
[2023-02-12 10:58] VITALS: BP 148/98; PULSE 76; RESP 19; TEMP 36.6; O2SAT 98
== END 2023-02-12 13:00 | disposition home or self-care (01) ==
PROVIDERS: Emergency Provider Nurse Practitioner Family; PCP Internal Medicine
DX: S93.402A Sprain of unspecified ligament of left ankle, initial encounter (principal); S93.602A Unspecified sprain of left foot, initial encounter; M79.672 Pain in left foot; M25.572 Pain in left ankle and joints of left foot; F17.210 Nicotine dependence, cigarettes, uncomplicated; W19.XXXA Unspecified fall, initial encounter
CPT/HCPCS: 73610; 73630; 99204; 99212; G0463

== ENCOUNTER 2024-04-19 16:28 | Outpatient (CLI) | payer BC, SELFPAY ==
[2024-04-19 15:18] LABS: Basophils % 0.6 % (0.1-2.0); Eosinophils # 0.2 K/mm3 (0.0-0.4); Eosinophils % 2.7 % (0.1-12.0); Hematocrit 49.6 % (42.0-52.0); Hemoglobin 16.5 g/dL (14.1-18.0); Lymphocytes # 1.8 K/mm3 (0.7-4.5); Lymphocytes % 25.9 % (10-50); Mean Corpuscular HGB Conc 33.3 g/dL (31.8-35.4); Mean Corpuscular Hemoglobin 30.4 pg (27.0-31.2); Mean Corpuscular Volume 91.3 fl (80-94); Mean Platelet Volume 10.6 fl (7.4-10.4); Monocytes # 0.7 K/mm3 (0.1-1.0); Monocytes % 9.6 % (1.7-9.3); Neutrophils # 4.3 K/mm3 (1.8-7.8); Neutrophils % 60.8 % (37.0-80.0); Platelet Count 212 K/mm3 (142-424); Red Blood Count 5.43 M/mm3 (4.60-6.20)
[2024-04-19 15:46] LABS: Alanine Aminotransferase 79 U/L (12-78); Albumin Level 4.7 g/dl (3.5-5.0); Alkaline Phosphatase 105 U/L (38-126); Anion Gap 12.6 mEq/L (5-15); Aspartate Amino Transferase 53 U/L (17-59); Bilirubin,Total 0.3 mg/dl (0.2-1.3); Blood Urea Nitrogen 12 mg/dl (9-20); Calcium 9.5 mg/dl (8.4-10.2); Carbon Dioxide 30 mmol/L (22.0-30.0); Chloride 104 mmol/L (98-107); Cholesterol 191 mg/dl (140-200); Estimated Glomerular Filt Rate 76 ml/min (>60); GFR (African American) 92 ML/MIN (>60); Globulin 2.3 g/dL (1.3-3.2); Glucose 82 mg/dl (74-100); HDL Cholesterol 38 mg/dl (40-60); Potassium 4.6 mmoL/L (3.5-5.1); Sodium 142 mmol/L (136-145); Triglycerides 265 mg/dl (30-150); VLDL Cholesterol 53 mg/dL (0-40)
[2024-04-19 15:57] LABS: Direct LDL Cholesterol 89.73 mg/dL (100-129)
[2024-04-19 16:16] LABS: Prostate Specific Ag Screen 0.5 ng/ml (0.0-4.0); Thyroid Stimulating Hormone 2.29 uIU/mL (0.465-4.68)
[2024-04-19 16:35] LABS: Vitamin B12 254 pg/mL (239-931)
[2024-04-20 08:48] LABS: Testosterone,Total 525 ng/dL (264-916)
[2024-04-28 02:16] LABS: 1,25 Dihydroxy Vitamin D 59 pg/mL (.); 1,25-Dihydroxy, Vitamin D-2 <10 pg/mL (.); 1,25-Dihydroxy, Vitamin D-3 54 pg/mL (.)
== END 2024-04-19 23:59 | disposition home or self-care (01) ==
LOC: LAB.DROPOF 16:28
PROVIDERS: PCP Internal Medicine; Visit Provider Internal Medicine
DX: E55.9 Vitamin D deficiency, unspecified (principal); C81.90 Hodgkin lymphoma, unspecified, unspecified site; E78.5 Hyperlipidemia, unspecified; G62.9 Polyneuropathy, unspecified; R79.89 Other specified abnormal findings of blood chemistry; Z12.5 Encounter for screening for malignant neoplasm of prostate
CPT/HCPCS: 80053; 80061; 82607; 82652; 84403; 84443; 85025; G0103

== ENCOUNTER 2024-12-12 12:46 | Outpatient (CLI) | payer BC, MEDICARE, SELFPAY ==
--- OUTSIDE RECORDS SUMMARY | 2024-12-06 09:30 | XMS_ITS | Encounter Summary ---
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 Procedures CT Abdomen Pelvis With Contrast Magdy Tripp MD [address] [address] Phone: tel: fax: [facility] AT [address] [place] [address] Phone: tel: fax: Referral ID Status Reason Start Date Expiration Date V isits Requested Visits Authorized [id number] Authorized 12/05/2024 09/07/2025 2 2 Reason for Visit * MRI/CAT/PET Scan (Emergency) - Pending Review Specialty Diagnoses / Procedures Referred By Jong nieves Referred To Contact Radiology Diagnoses 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 Procedures CT Soft Tissue Neck With Contrast CT Soft Tissue Neck With Contrast aMgdy Tripp MD [address] [address] Phone: tel: fax: [facility] [address] AT [address] [place] [address] Phone: tel: fax: Referral ID Status Reason Start Date Expiration Date V isits Requested Visits Authorized [id number] Pending Review 12/05/2024 09/07/2025 1 1 Encounter Details Date Type Department Care Team (Latest Contact Info) Description 12/06/2024 10:30 AM EDT - 12/06/2024 11:59 PM EDT Hospital Encounter [facility] AT [address] [place] [address] 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 Discharge Disposition: Home or Self Care Social History Tobacco Use Types Packs/Day Years Used Date Smoking Tobacco: Every Day Cigarettes 1 41 Passive Smoke Exposure: Current Smokeless Tobacco: Never Comments:Smoked since age 20 Alcohol Use Standard Drinks/Week Comments Not Currently 0 (1 standard drink = 0.6 oz pur e alcohol) occ 3-4 beers 1-2x/monthly PHQ-2 Answer Date Recorded Retired PHQ-9: Brief Depression Severity Measure Score 0 06/11/2022 Housing Stability Answer Date Recorded Current Living Arrangements home 05/09 Potentially Unsafe Housing Conditions Not on scar e 05/20/2022 Disabilities Answer Date Recorded Difficulty Concentrating, Remembering or Making Decisions no 05/20/2022 Difficulty Managing Errands Independently no 05/20/2022 PHQ-2 Answer Date Recorded Patient Health Questionnaire-2 Score 1 06/08/2024 Sex and Gender Information Value Date Recorded Sex Assigned at Not on file Legal Sex Male 2:11 PM EST Gender Identity Not on file Sexual Orientation Not on file documented as of this encounter Medications at Time of Discharge amLODIPine (NORVASC) 2.5 MG tablet 12/04/2024 atorvastatin (LIPITOR) 10 MG tablet 03/02/2022 cholecalciferol (VITAMIN D3) 25 MCG (1000 UT) tablet Take 1 tablet by mouth Daily. ibuprofen (ADVIL,MOTRIN) 800 MG tablet 1 tablet. 02/12/2023 lidocaine-prilocain e (EMLA) 2.5-2.5 % cream Apply 1 application topically to the appropriate area as directed As Needed for Injection Site Pain. Apply to your port 45-60 minutes before access then cover the area with plastic wrap. 5 g 5 05/27/2022 lidocaine-prilocain e (EMLA) 2.5-2.5 % cream Apply 1 Application topically to the appropriate area as directed Every 2 (Two) Hours As Needed for Mild Pain. 5 g 3 04/05/2023 losartan (COZAAR) 50 MG tablet 12/04/2024 meloxicam (MOBIC) 15 MG tablet 03/06/2022 naproxen (NAPROSYN) 500 MG tablet Take 1 tablet by mouth Daily. 04/19/2024 omeprazole (priLOSEC) 40 MG capsule 10/27/2023 ondansetron ODT (ZOFRAN-ODT) [address] 1 tablet on the tongue Every 8 (Eight) Hours As Needed for Nausea or Vomiting. 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 90 capsule 3 04/05/2023 Testosterone Cypionate (DEPOTESTOTERONE CYPIONATE) 200 MG/ML injection 03/30/2022 traMADol (ULTRAM) 50 MG tabletIndications:N odular sclerosis Hodgkin lymphoma of lymph nodes of multiple regions Take 1 tablet by mouth Every 6 (Six) Hours As Needed for Moderate Pain. 90 tablet 5 07/23/2022 documented as of this encounter Plan of Treatment Upcoming Encounters Date Type Department Care Team (Late st Contact Info) Description 12/10/2025 10:30 AM EST Appointment [facility] [address] [facility] [address] [place] [id number] 12/10/2025 11:45 AM EST Office Visit [facility] [address] [facility] [address] [place] [id number] Magdy Tripp MD [address] [facility] [address] [place] [address] documented as of this encounter Procedures Procedure Name Priority Date/Time Associated Diagnosis Comments CT ABDOMEN PELVIS W CONTRAST Routine 12/06/2024 11:38 AM EDT 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 No evidence of recurrent lymphoma or active infection. CT SCAN OF THE CHEST WITH IV CONTRAST: The thoracic aorta and pulmonary arteries appear unremarkable. Extensive coronary artery calcification is visible despite IV contrast. There is a small hiatal hernia. No pericardial or pleural effusion is identified. The central airways appear normally patent. There is no evidence of significant mediastinal, hilar, or axillary adenopathy. Lungs appear clear of active disease. Bony structures appear intact. Multilevel mid and lower thoracic degenerative disc disease, and mild loss of height of T11 appear unchanged. IMPRESSION: No evidence of lymphoma or other active disease in the chest. CT SCAN OF THE ABDOMEN PELVIS WITH IV CONTRAST: There is a very small hiatal hernia. There is diffuse fatty liver change. There are a few granulomatous calcifications in the liver and spleen. No hepatic or splenic lesions are seen and the spleen is normal in size. Pancreas, gallbladder, and adrenal glands appear within normal limits. Kidneys appear unremarkable except for what appear to be multiple very small cortical cysts, unchanged. There are stable small periaortic lymph nodes and no evidence of new or increasing adenopathy. No inflammatory change or ascites is seen. Bowel loops are normal in caliber. Regarding the lower abdomen and, the terminal ileum and cecum appear normal. Appendix is not identified. Review of the colon shows a mild degree of fecal stasis, but no evidence of mass, inflammation, or obstruction. Rectosigmoid anastomotic site appears clear. Bladder is normally distended and normal in appearance. Prostate and seminal vesicles are not enlarged. No intrapelvic or inguinal adenopathy is seen. Delayed venous phase images show no evidence of obstructive uropathy. Bladder opacifies normally with contrast. Bony structures appear to be intact. Impression: No evidence of lymphoma or other evidence of acute intra-abdominal or intrapelvic disease. Electronically Signed: Larry Merino MD 12/06/2024 4:29 PM EDT Workstation ID: [id number] Narrative 12/06/2024 4:[address] ABDOMEN PELVIS W CONTRAST, CT CHEST W CONTRAST DIAGNOSTIC, CT SOFT TISSUE NECK W CONTRAST Date of Exam: 12/06/2024 11:16 AM EDT Indication: hodgkins. Comparison: CT neck chest abdomen pelvis of 06/08/2024 Technique: Axial CT images were obtained of the neck, chest, abdomen and pelvis following the uneventful intravenous administration of iodinated contrast. Reconstructed coronal and sagittal images were also obtained. Automated exposure control and iterative construction methods were used. Findings: By report, scans from 06/08/2024 showed no evidence of recurrent lymphoma. CT SCAN OF THE NECK SOFT TISSUES WITH IV CONTRAST: Included base of brain appears grossly normal. Paranasal sinuses and mastoids are clear. Orbits appear grossly normal. Parotid and submandibular glands and thyroid gland appear within normal limits. No evidence of cervical mass or adenopathy is seen. Mild generalized prominence of the lymphoid tissue of the oropharynx is essentially unchanged from the prior study, with no evidence of underlying mass, abnormal enhancement, or increasing asymmetry. Carotid and vertebral arteries and internal jugular veins enhance normally with contrast. No inflammatory changes are identified. Sagittal images show no evidence of significant incidental cervical spine disease, and no prevertebral soft tissue swelling. Procedure Note Larry Merino MD - 12/06/2024 CT ABDOMEN PELVIS W CONTRAST, CT CHEST W CONTRAST DIAGNOSTIC, CT SOFTTISSUE NECK W CONTRAST Date of Exam: 12/06/2024 11:16 AM EDT Indication: hodgkins. Comparison: CT neck chest abdomen pelvis of 06/08/2024 Technique: Axial CT images were obtained of the neck, chest, abdomen andpelvis following the uneventful intravenous administration of iodinatedcontrast. Reconstructed coronal and sagittal images were also obtained.Automated exposure control and iterative construction methods were used. Findings: By report, scans from 06/08/2024 showed no evidence of recurrent lymphoma. CT SCAN OF THE NECK SOFT TISSUES WITH IV CONTRAST: Included base of brainappears grossly normal. Paranasal sinuses and mastoids are clear. Orbitsappear grossly normal. Parotid and submandibular glands and thyroid glandappear within normal limits. No evidence of cervical mass or adenopathy is seen. Mild generalizedprominence of the lymphoid tissue of the oropharynx is essentiallyunchanged from the prior study, with no evidence of underlying mass,abnormal enhancement, or increasing asymmetry. Carotid and vertebral arteries and internal jugular veins enhance normallywith contrast. No inflammatory changes are identified. Sagittal imagesshow no evidence of significant incidental cervical spine disease, and noprevertebral soft tissue swelling. IMPRESSION: Stable CT scan of the neck including mild uniform prominence of theadenoids and tonsils. No evidence of recurrent lymphoma or activeinfection. CT SCAN OF THE CHEST WITH IV CONTRAST: The thoracic aorta and pulmonaryarteries appear unremarkable. Extensive coronary artery calcification isvisible despite IV contrast. There is a small hiatal hernia. Nopericardial or pleural effusion is identified. The central airways appear normally patent. There is noevidence of significant mediastinal, hilar, or axillary adenopathy. Lungsappear clear of active disease. Bony structures appear intact. Multilevelmid and lower thoracic degenerative disc disease, and mild loss of height of T11 appear unchanged. IMPRESSION: No evidence of lymphoma or other active disease in thechest. CT SCAN OF THE ABDOMEN PELVIS WITH IV CONTRAST: There is a very smallhiatal hernia. There is diffuse fatty liver change. There are a fewgranulomatous calcifications in the liver and spleen. No hepatic orsplenic lesions are seen and the spleen is normal in size. Pancreas, gallbladder, and adrenal glands appear withinnormal limits. Kidneys appear unremarkable except for what appear to bemultiple very small cortical cysts, unchanged. There are stable smallperiaortic lymph nodes and no evidence of new or increasing adenopathy. No inflammatory change or ascites isseen. Bowel loops are normal in caliber. Regarding the lower abdomen and, the terminal ileum and cecum appearnormal. Appendix is not identified. Review of the colon shows a milddegree of fecal stasis, but no evidence of mass, inflammation, orobstruction. Rectosigmoid anastomotic site appears clear. Bladder is normally distended and normal in appearance. Prostateand seminal vesicles are not enlarged. No intrapelvic or inguinaladenopathy is seen. Delayed venous phase images show no evidence of obstructive uropathy.Bladder opacifies normally with contrast. Bony structures appear to beintact. Impression: No evidence of lymphoma or other evidence of acute intra-abdominal orintrapelvic disease. Electronically Signed: Larry Merino MD 12/06/2024 4:29 PM EDT Workstation ID: [id number] us Magdy Tripp MD IMG CT ORDERABLES Final R esult * CT Chest With Contrast Diagnostic (12/06/2024 11:38 AM EDT) Anatomical Region Laterality Modality Chest N/A Computed Tomogra phy 12/06/2024 3:59 PM EDT Impressions 12/06/2024 4:[address] scan of the neck including mild uniform prominence of the adenoids and tonsils. No evidence of recurrent lymphoma or active infection. CT SCAN OF THE CHEST WITH IV CONTRAST: The thoracic aorta and pulmonary arteries appear unremarkable. Extensive coronary artery calcification is visible despite IV contrast. There is a small hiatal hernia. No pericardial or pleural effusion is identified. The central airways appear normally patent. There is no evidence of significant mediastinal, hilar, or axillary adenopathy. Lungs appear clear of active disease. Bony structures appear intact. Multilevel mid and lower thoracic degenerative disc disease, and mild loss of height of T11 appear unchanged. IMPRESSION: No evidence of lymphoma or other active disease in the chest. CT SCAN OF THE ABDOMEN PELVIS WITH IV CONTRAST: There is a very small hiatal hernia. There is diffuse fatty liver change. There are a few granulomatous calcifications in the liver and spleen. No hepatic or splenic lesions are seen and the spleen is normal in size. Pancreas, gallbladder, and adrenal glands appear within normal limits. Kidneys appear unremarkable except for what appear to be multiple very small cortical cysts, unchanged. There are stable small periaortic lymph nodes and no evidence of new or increasing adenopathy. No inflammatory change or ascites is seen. Bowel loops are normal in caliber. Regarding the lower abdomen and, the terminal ileum and cecum appear normal. Appendix is not identified. Review of the colon shows a mild degree of fecal stasis, but no evidence of mass, inflammation, or obstruction. Rectosigmoid anastomotic site appears clear. Bladder is normally distended and normal in appearance. Prostate and seminal vesicles are not enlarged. No intrapelvic or inguinal adenopathy is seen. Delayed venous phase images show no evidence of obstructive uropathy. Bladder opacifies normally with contrast. Bony structures appear to be intact. Impression: No evidence of lymphoma or other evidence of acute intra-abdominal or intrapelvic disease. Electronically Signed: Larry Merino MD 12/06/2024 4:29 PM EDT Workstation ID: [id number] Narrative 12/06/2024 4:[address] ABDOMEN PELVIS W CONTRAST, CT CHEST W CONTRAST DIAGNOSTIC, CT SOFT TISSUE NECK W CONTRAST Date of Exam: 12/06/2024 11:16 AM EDT Indication: [email or web address]. Comparison: CT neck chest abdomen pelvis of 06/08/2024 Technique: Axial CT images were obtained of the neck, chest, abdomen and pelvis following the uneventful intravenous administration of iodinated contrast. Reconstructed coronal and sagittal images were also obtained. Automated exposure control and iterative construction methods were used. Findings: By report, scans from 06/08/2024 showed no evidence of recurrent lymphoma. CT SCAN OF THE NECK SOFT TISSUES WITH IV CONTRAST: Included base of brain appears grossly normal. Paranasal sinuses and mastoids are clear. Orbits appear grossly normal. Parotid and submandibular glands and thyroid gland appear within normal limits. No evidence of cervical mass or adenopathy is seen. Mild generalized prominence of the lymphoid tissue of the oropharynx is essentially unchanged from the prior study, with no evidence of underlying mass, abnormal enhancement, or increasing asymmetry. Carotid and vertebral arteries and internal jugular veins enhance normally with contrast. No inflammatory changes are identified. Sagittal images show no evidence of significant incidental cervical spine disease, and no prevertebral soft tissue swelling. Procedure Note Larry Merino MD - 12/06/2024 CT ABDOMEN PELVIS W CONTRAST, CT CHEST W CONTRAST DIAGNOSTIC, CT SOFTTISSUE NECK W CONTRAST Date of Exam: 12/06/2024 11:16 AM EDT Indication: [email or web address]. Comparison: CT neck chest abdomen pelvis of 06/08/2024 Technique: Axial CT images were obtained of the neck, chest, abdomen andpelvis following the uneventful intravenous administration of iodinatedcontrast. Reconstructed coronal and sagittal images were also obtained.Automated exposure control and iterative construction methods were used. Findings: By report, scans from 06/08/2024 showed no evidence of recurrent lymphoma. CT SCAN OF THE NECK SOFT TISSUES WITH IV CONTRAST: Included base of brainappears grossly normal. Paranasal sinuses and mastoids are clear. Orbitsappear grossly normal. Parotid and submandibular glands and thyroid glandappear within normal limits. No evidence of cervical mass or adenopathy is seen. Mild generalizedprominence of the lymphoid tissue of the oropharynx is essentiallyunchanged from the prior study, with no evidence of underlying mass,abnormal enhancement, or increasing asymmetry. Carotid and vertebral arteries and internal jugular veins enhance normallywith contrast. No inflammatory changes are identified. Sagittal imagesshow no evidence of significant incidental cervical spine disease, and noprevertebral soft tissue swelling. IMPRESSION: Stable CT scan of the neck including mild uniform prominence of theadenoids and tonsils. No evidence of recurrent lymphoma or activeinfection. CT SCAN OF THE CHEST WITH IV CONTRAST: The thoracic aorta and pulmonaryarteries appear unremarkable. Extensive coronary artery calcification isvisible despite IV contrast. There is a small hiatal hernia. Nopericardial or pleural effusion is identified. The central airways appear normally patent. There is noevidence of significant mediastinal, hilar, or axillary adenopathy. Lungsappear clear of active disease. Bony structures appear intact. Multilevelmid and lower thoracic degenerative disc disease, and mild loss of height of T11 appear unchanged. IMPRESSION: No evidence of lymphoma or other active disease in thechest. CT SCAN OF THE ABDOMEN PELVIS WITH IV CONTRAST: There is a very smallhiatal hernia. There is diffuse fatty liver change. There are a fewgranulomatous calcifications in the liver and spleen. No hepatic orsplenic lesions are seen and the spleen is normal in size. Pancreas, gallbladder, and adrenal glands appear withinnormal limits. Kidneys appear unremarkable except for what appear to bemultiple very small cortical cysts, unchanged. There are stable smallperiaortic lymph nodes and no evidence of new or increasing adenopathy. No inflammatory change or ascites isseen. Bowel loops are normal in caliber. Regarding the lower abdomen and, the terminal ileum and cecum appearnormal. Appendix is not identified. Review of the colon shows a milddegree of fecal stasis, but no evidence of mass, inflammation, orobstruction. Rectosigmoid anastomotic site appears clear. Bladder is normally distended and normal in appearance. Prostateand seminal vesicles are not enlarged. No intrapelvic or inguinaladenopathy is seen. Delayed venous phase images show no evidence of obstructive uropathy.Bladder opacifies normally with contrast. Bony structures appear to beintact. Impression: No evidence of lymphoma or other evidence of acute intra-abdominal orintrapelvic disease. Electronically Signed: Larry Merino MD 12/06/2024 4:29 PM EDT Workstation ID: [id number] us Magdy Tripp MD IMG CT ORDERABLES Final R esult * CT Abdomen Pelvis With Contrast (12/06/2024 11:38 AM EDT) Anatomical Region Laterality Modality Abdomen, Pelvis N/A Computed Tomogra phy 12/06/2024 3:59 PM EDT Impressions 12/06/2024 4:[address] scan of the neck including mild uniform prominence of the adenoids and tonsils. No evidence of recurrent lymphoma or active infection. CT SCAN OF THE CHEST WITH IV CONTRAST: The thoracic aorta and pulmonary arteries appear unremarkable. Extensive coronary artery calcification is visible despite IV contrast. There is a small hiatal hernia. No pericardial or pleural effusion is identified. The central airways appear normally patent. There is no evidence of significant mediastinal, hilar, or axillary adenopathy. Lungs appear clear of active disease. Bony structures appear intact. Multilevel mid and lower thoracic degenerative disc disease, and mild loss of height of T11 appear unchanged. IMPRESSION: No evidence of lymphoma or other active disease in the chest. CT SCAN OF THE ABDOMEN PELVIS WITH IV CONTRAST: There is a very small hiatal hernia. There is diffuse fatty liver change. There are a few granulomatous calcifications in the liver and spleen. No hepatic or splenic lesions are seen and the spleen is normal in size. Pancreas, gallbladder, and adrenal glands appear within normal limits. Kidneys appear unremarkable except for what appear to be multiple very small cortical cysts, unchanged. There are stable small periaortic lymph nodes and no evidence of new or increasing adenopathy. No inflammatory change or ascites is seen. Bowel loops are normal in caliber. Regarding the lower abdomen and, the terminal ileum and cecum appear normal. Appendix is not identified. Review of the colon shows a mild degree of fecal stasis, but no evidence of mass, inflammation, or obstruction. Rectosigmoid anastomotic site appears clear. Bladder is normally distended and normal in appearance. Prostate and seminal vesicles are not enlarged. No intrapelvic or inguinal adenopathy is seen. Delayed venous phase images show no evidence of obstructive uropathy. Bladder opacifies normally with contrast. Bony structures appear to be intact. Impression: No evidence of lymphoma or other evidence of acute intra-abdominal or intrapelvic disease. Electronically Signed: Larry Merino MD 12/06/2024 4:29 PM EDT Workstation ID: [id number] Narrative 12/06/2024 4:[address] ABDOMEN PELVIS W CONTRAST, CT CHEST W CONTRAST DIAGNOSTIC, CT SOFT TISSUE NECK W CONTRAST Date of Exam: 12/06/2024 11:16 AM EDT Indication: [email or web address]. Comparison: CT neck chest abdomen pelvis of 06/08/2024 Technique: Axial CT images were obtained of the neck, chest, abdomen and pelvis following the uneventful intravenous administration of iodinated contrast. Reconstructed coronal and sagittal images were also obtained. Automated exposure control and iterative construction methods were used. Findings: By report, scans from 06/08/2024 showed no evidence of recurrent lymphoma. CT SCAN OF THE NECK SOFT TISSUES WITH IV CONTRAST: Included base of brain appears grossly normal. Paranasal sinuses and mastoids are clear. Orbits appear grossly normal. Parotid and submandibular glands and thyroid gland appear within normal limits. No evidence of cervical mass or adenopathy is seen. Mild generalized prominence of the lymphoid tissue of the oropharynx is essentially unchanged from the prior study, with no evidence of underlying mass, abnormal enhancement, or increasing asymmetry. Carotid and vertebral arteries and internal jugular veins enhance normally with contrast. No inflammatory changes are identified. Sagittal images show no evidence of significant incidental cervical spine disease, and no prevertebral soft tissue swelling. Procedure Note Larry Merino MD - 12/06/2024 CT ABDOMEN PELVIS W CONTRAST, CT CHEST W CONTRAST DIAGNOSTIC, CT SOFTTISSUE NECK W CONTRAST Date of Exam: 12/06/2024 11:16 AM EDT Indication: [email or web address]. Comparison: CT neck chest abdomen pelvis of 06/08/2024 Technique: Axial CT images were obtained of the neck, chest, abdomen andpelvis following the uneventful intravenous administration of iodinatedcontrast. Reconstructed coronal and sagittal images were also obtained.Automated exposure control and iterative construction methods were used. Findings: By report, scans from 06/08/2024 showed no evidence of recurrent lymphoma. CT SCAN OF THE NECK SOFT TISSUES WITH IV CONTRAST: Included base of brainappears grossly normal. Paranasal sinuses and mastoids are clear. Orbitsappear grossly normal. Parotid and submandibular glands and thyroid glandappear within normal limits. No evidence of cervical mass or adenopathy is seen. Mild generalizedprominence of the lymphoid tissue of the oropharynx is essentiallyunchanged from the prior study, with no evidence of underlying mass,abnormal enhancement, or increasing asymmetry. Carotid and vertebral arteries and internal jugular veins enhance normallywith contrast. No inflammatory changes are identified. Sagittal imagesshow no evidence of significant incidental cervical spine disease, and noprevertebral soft tissue swelling. IMPRESSION: Stable CT scan of the neck including mild uniform prominence of theadenoids and tonsils. No evidence of recurrent lymphoma or activeinfection. CT SCAN OF THE CHEST WITH IV CONTRAST: The thoracic aorta and pulmonaryarteries appear unremarkable. Extensive coronary artery calcification isvisible despite IV contrast. There is a small hiatal hernia. Nopericardial or pleural effusion is identified. The central airways appear normally patent. There is noevidence of significant mediastinal, hilar, or axillary adenopathy. Lungsappear clear of active disease. Bony structures appear intact. Multilevelmid and lower thoracic degenerative disc disease, and mild loss of height of T11 appear unchanged. IMPRESSION: No evidence of lymphoma or other active disease in thechest. CT SCAN OF THE ABDOMEN PELVIS WITH IV CONTRAST: There is a very smallhiatal hernia. There is diffuse fatty liver change. There are a fewgranulomatous calcifications in the liver and spleen. No hepatic orsplenic lesions are seen and the spleen is normal in size. Pancreas, gallbladder, and adrenal glands appear withinnormal limits. Kidneys appear unremarkable except for what appear to bemultiple very small cortical cysts, unchanged. There are stable smallperiaortic lymph nodes and no evidence of new or increasing adenopathy. No inflammatory change or ascites isseen. Bowel loops are normal in caliber. Regarding the lower abdomen and, the terminal ileum and cecum appearnormal. Appendix is not identified. Review of the colon shows a milddegree of fecal stasis, but no evidence of mass, inflammation, orobstruction. Rectosigmoid anastomotic site appears clear. Bladder is normally distended and normal in appearance. Prostateand seminal vesicles are not enlarged. No intrapelvic or inguinaladenopathy is seen. Delayed venous phase images show no evidence of obstructive uropathy.Bladder opacifies normally with contrast. Bony structures appear to beintact. Impression: No evidence of lymphoma or other evidence of acute intra-abdominal orintrapelvic disease. 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 documented in this encounter Administered Medications Inactive Administered Medications - up to 3 most recent administrations Medication Order MAR Action Action Date Dose Rate Site iopamidol (ISOVUE-300) 61 % injection 95 mL 95 mL, Intravenous, Once in Imaging, On Wed12/06/24 at 1139, For 1 dose Given 12/06/2024 11:37 AM EDT 95 mL documented in this encounter Additional Health Concerns Assessment Noted Time PHQ-2 Depression Total Score: 1 02/22/19 24 9:31 AM EST documented as of this encounter Care Teams Musical Performer Relationship Specialty Start Date End Date Daniel Scanlon MD [address] [facility] [address] [place] [address] PCP - General Internal Medicine 04/09/22 documented as of this encounter
--- OUTSIDE RECORDS SUMMARY | 2024-12-06 10:45 | XMS_ITS | Encounter Summary ---
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 Procedures CT Chest With Contrast Diagnostic Magdy Tripp MD [address] [address] Phone: tel: fax: [address] [address] Phone: tel: Referral ID Status Reason Start Date Expiration Date V isits Requested Visits Authorized [id number] Pending Review 12/06/2024 03/07/2026 1 1 * MRI/CAT/PET Scan (Routine) - Pending Review Specialty Diagnoses / Procedures Referred By Contac t Referred To Contact Radiology Diagnoses 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 Procedures CT Abdomen Pelvis With Contrast Magdy Tripp MD [address] [address] Phone: tel: fax: [facility] [address] [place] [phone] Phone: tel: Referral ID Status Reason Start Date Expiration Date V isits Requested Visits Authorized [id number] Pending Review 12/06/2024 03/07/2026 1 1 * MRI/CAT/PET Scan (Routine) - Pending Review Specialty Diagnoses / Procedures Referred By Contac t Referred To Contact Radiology Diagnoses 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 Procedures CT Soft Tissue Neck With Contrast Magdy Tripp MD [address] [facility] [place] [address] Phone: tel: fax: [facility] [address] [place] [phone] Phone: tel: Referral ID Status Reason Start Date Expiration Date V isits Requested Visits Authorized [id number] Pending Review 12/06/2024 03/07/2026 1 1 Encounter Details Date Type Department Care Team (Late st Contact Info) Description 12/06/2024 11:45 AM EDT Office Visit [facility] HEMATOLOGY & ONCOLOGY [address] [phone] Magdy Tripp MD [address] [address] 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 (Primary Dx) Social History Tobacco Use Types Packs/Day Years [...] on file documented as of this encounter Last Filed Vital Signs Vital Sign Reading Time Taken Comments Blood Pressure 191/102 12/06/2024 11:55 AM EDT KYMBERLY E Pulse 85 12/06/2024 11:55 AM EDT Temperature 36.9 C (98.4 F) 12/06/2024 11:55 AM EDT Respiratory Rate 24 12/06/2024 11:55 AM EDT Oxygen Saturation 96% 12/06/2024 11:55 AM EDT RA Inhaled Oxygen Concentration - - Weight 101 kg (223 lb) 12/06/2024 11:55 AM EDT Height 180.3 cm (5' 11 ) 12/06/2024 11:55 AM EDT Body Mass Index 31.1 12/06/2024 11:55 AM EDT documented in this encounter Progress Notes * Magdy Tripp MD - 12/06/2024 11:45 AM EDT PROBLEM LIST: Oncology/Hematology History 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 05/12/2022 Cancer Staged Staging form: Hodgkin And Non-Hodgkin Lymphoma, AJCC 8th Edition - Clinical stage from 05/12/2022: Stage III (Hodgkin lymphoma, A - Asymptomatic) - Signed by Magdy Tripp MD on 05/13/2022 05/27/2022 Imaging NM PET/CT Skull Base to Mid Thigh Result Date: 05/26/2022 Impression: 1. Interval treatment response with significant decrease in axillary, mediastinal, retroperitoneal and pelvic sidewall adenopathy. 2. There is also been interval decrease in lesions within the spleen. Electronically Signed: Marbin Abraham 05/26/2022 1:45 PM EDT Workstation ID: [id number] 05/28/2022 - 10/29/2022 Chemotherapy OP HODGKIN LYMPHOMA ABVD DOXOrubicin / Dacarbazine / VinBLAStine / Bleomycin REASON FOR VISIT: Hodgkin's lymphoma HISTORY OF PRESENT ILLNESS: 64 y.o. male presents today for follow-up of his Hodgkin's lymphoma. He Completed 6 cycles of ABVD in 10/2022. He presents after having scans done. Still having considerable issues with neuropathy. But otherwise doing reasonably well. He is dealing with a lot of blood pressure issues. He is on testosterone replacement. Past medical history, social history and family history was reviewed 12/06/24 and unchanged from prior visit. Review of Systems: Review of Systems Constitutional: Positive for fatigue. Eyes: Negative. Respiratory: Negative. Cardiovascular: Negative. Gastrointestinal: Negative. Endocrine: Negative. Genitourinary: Negative. Musculoskeletal: Negative. Skin: Positive for itching. Neurological: Positive for numbness. Psychiatric/Behavioral: Negative. Medications: Current Outpatient Medications: amLODIPine (NORVASC) 2.5 MG tablet, , Disp: , Rfl: atorvastatin (LIPITOR) 10 MG tablet, , Disp: , Rfl: cholecalciferol (VITAMIN D3) 25 MCG (1000 UT) tablet, Take 1 tablet by mouth Daily., Disp: , Rfl: ibuprofen (ADVIL,MOTRIN) 800 MG tablet, 1 tablet., Disp: , Rfl: lidocaine-prilocaine (EMLA) 2.5-2.5 % cream, Apply 1 application topically to the appropriate area as directed As Needed for Injection Site Pain. Apply to your port 45-60 minutes before access then cover the area with plastic wrap., Disp: 5 g, Rfl: 5 lidocaine-prilocaine (EMLA) 2.5-2.5 % cream, Apply 1 Application topically to the appropriate area as directed Every 2 (Two) Hours As Needed for Mild Pain., Disp: 5 g, Rfl: 3 losartan (COZAAR) 50 MG tablet, , Disp: , Rfl: meloxicam (MOBIC) 15 MG tablet, , Disp: , Rfl: naproxen (NAPROSYN) 500 MG tablet, Take 1 tablet by mouth Daily., Disp: , Rfl: omeprazole (priLOSEC) 40 MG capsule, , Disp: , Rfl: ondansetron ODT (ZOFRAN-ODT) 8 MG disintegrating tablet, Place 1 tablet on the tongue Every 8 (Eight) Hours As Needed for Nausea or Vomiting., Disp: 30 tablet, Rfl: 5 pregabalin (LYRICA) 50 MG capsule, Take 1 capsule by mouth 3 (Three) Times a Day., Disp: 90 capsule, Rfl: 3 Testosterone Cypionate (DEPOTESTOTERONE CYPIONATE) 200 MG/ML injection, , Disp: , Rfl: traMADol (ULTRAM) 50 MG tablet, Take 1 tablet by mouth Every 6 (Six) Hours As Needed for Moderate Pain., Disp: 90 tablet, Rfl: 5 No current facility-administered medications for this visit. Pain Medications ibuprofen (ADVIL,MOTRIN) 800 MG tablet 1 tablet. meloxicam (MOBIC) 15 MG tablet naproxen (NAPROSYN) 500 MG tablet Take 1 tablet by mouth Daily. pregabalin (LYRICA) 50 MG capsule Take 1 capsule by mouth 3 (Three) Times a Day. traMADol (ULTRAM) 50 MG tablet Take 1 tablet by mouth Every 6 (Six) Hours As Needed for Moderate Pain. ALLERGIES: Allergies Allergen Reactions Gabapentin Dizziness Physical Exam VITAL SIGNS: BP (!) 191/102 Comment: LUE Pulse 85 Temp 98.4 ??F (36.9 ??C) (Temporal) Resp 24 Ht 180.3 cm (71 ) Wt 101 kg (223 lb) SpO2 96% Comment: RA BMI 31.10 kg/m?? ECOG score: 0 Wt Readings from Last 3 Encounters: 12/06/24 101 kg (223 lb) 06/08/24 103 kg (227 lb) 05/10/24 103 kg (226 lb) Body mass index is 31.1 kg/m??. Body surface area is 2.21 meters squared. Performance Status: 0 General: well appearing, in no acute distress HEENT: sclera anicteric, neck is supple Extremities: no lower extremity edema Skin: no rashes, lesions, bruising, or petechiae Msk: Shows no weakness of the large muscle groups Psych: Mood is stable RECENT LABS: Lab Results Component Value Date HGB 16.7 12/09/2023 HCT 48.9 12/09/2023 MCV 93.3 12/09/2023 PLT 185 12/09/2023 WBC 6.41 12/09/2023 NEUTROABS 4.19 12/09/2023 LYMPHSABS 1.50 12/09/2023 MONOSABS 0.48 12/09/2023 EOSABS 0.19 12/09/2023 BASOSABS 0.03 12/09/2023 Lab Results Component Value Date GLUCOSE 119 (H) 12/09/2023 BUN 12 12/09/2023 CREATININE 0.97 12/09/2023 NA 140 12/09/2023 K 4.5 12/09/2023 CL 102 12/09/2023 CO2 25.0 12/09/2023 CALCIUM 9.6 12/09/2023 PROTEINTOT 6.9 12/09/2023 ALBUMIN 4.2 12/09/2023 BILITOT 0.3 12/09/2023 ALKPHOS 127 (H) 12/09/2023 AST 26 12/09/2023 ALT 38 12/09/2023 Lab Results Component Value Date SEDRATE 7 12/09/2023 SEDRATE 11 04/26/2023 SEDRATE 6 04/05/2023 NM PET/CT Skull Base to Mid Thigh Result Date: 12/10/2022 Impression: Negative PET scan. Electronically Signed: Larry Merino MD 12/10/2022 10:03 AM EDT Workstation ID: [id number] CT Abdomen Pelvis With Contrast Result Date: 12/09/2023 Impression: Stable CT appearance of the neck, chest, abdomen and pelvis with no evidence of new pathologic lymphadenopathy or other suspicious findings concerning for lymphomatous disease. Electronically Signed: Deacon Jeter MD 12/09/2023 10:04 AM EDT Workstation ID: [id number] CT Chest With Contrast Diagnostic Result Date: 12/09/2023 Impression: Stable CT appearance of the neck, chest, abdomen and pelvis with no evidence of new pathologic lymphadenopathy or other suspicious findings concerning for lymphomatous disease. Electronically Signed: Deacon Jeter MD 12/09/2023 10:04 AM EDT Workstation ID: [id number] CT Soft Tissue Neck With Contrast Result Date: 12/09/2023 Impression: Stable CT appearance of the neck, chest, abdomen and pelvis with no evidence of new pathologic lymphadenopathy or other suspicious findings concerning for lymphomatous disease. Electronically Signed: Deacon Jeter MD 12/09/2023 10:04 AM EDT Workstation ID: [id number] CT Abdomen Pelvis With Contrast Result Date: 06/08/2024 Impression: 1.No findings to suggest lymphomatous disease recurrence within the neck, chest, abdomen, or pelvis. Electronically Signed: Polo Hampton MD 06/08/2024 11:04 AM EDT Workstation ID: [id number] CT Chest With Contrast Diagnostic Result Date: 06/08/2024 Impression: 1.No findings to suggest lymphomatous disease recurrence within the neck, chest, abdomen, or pelvis. Electronically Signed: Polo Hampton MD 06/08/2024 11:04 AM EDT Workstation ID: [id number] CT Soft Tissue Neck With Contrast Result Date: 06/08/2024 Impression: 1.No findings to suggest lymphomatous disease recurrence within the neck, chest, abdomen, or pelvis. Electronically Signed: Polo Hampton MD 06/08/2024 11:04 AM EDT Workstation ID: [id number] Assessment/Plan 1. Stage III nodular sclerosing Hodgkin's lymphoma. No sign of recurrent disease. I reviewed his scans that look reasonable. Final read pending plan for repeat scans in 12 months. 2. Hypertension. I wonder if this is been worsened by mild polycythemia as a result of his testosterone use. Will check a CBC today Total time of patient care on day of service including time prior to, face to face with patient, and following visit spent in reviewing records, lab results, imaging studies, discussion with patient,and documentation/charting was > 33 minutes. Magdy Tripp MD [facility] Hematology and Oncology Orders Placed This Encounter Procedures CT Soft Tissue Neck With Contrast CT Abdomen Pelvis With Contrast CT Chest With Contrast Diagnostic Comprehensive Metabolic Panel Sedimentation Rate C-reactive Protein CBC & Differential 12/06/2024 documented in this encounter Plan of Treatment Upcoming Encounters Date Type Department Care Team (Late st Contact Info) Description 12/10/2025 10:30 AM EST Appointment [facility] [place] [address] [facility] [address] [place] [address] 12/10/2025 11:45 AM EST Office Visit [facility] HEMATOLOGY & ONCOLOGY [address] [facility] [address] [place] [address] Magdy Tripp MD [address] [facility] [address] [place] [address] Scheduled Orders Name Type Priority Associated Diagnoses Orde r Schedule CT Soft Tissue Neck With Contrast Imaging Routine 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 Expected: 12/10/2025, Expires: 06/08/2026 CT Abdomen Pelvis With Contrast Imaging Routine 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
[address] [place] [address], * Sedimentation Rate (12/06/2024 12:55 PM EDT) [facility] Sed Rate 8 0 - 20 mm/hr 12/06/2024 1:29 PM EDT [facility] Blood Venipuncture / Unknown 12/06/2024 12:55 PM EDT 12/06/2024 12:55 PM EDT us Magdy Tripp MD LAB BLOOD ORDERABLES Fatuma l Result [facility]
[address] [place] [address], * (ABNORMAL) Comprehensive Metabolic Panel (12/06/2024 12:55 PM EDT) Glucose 137(H) 65 - 99 mg/dL 12/06/2024 1:48 PM EDT [facility] BUN 8.5 8.0 - 23.0 mg/dL 12/06/2024 1:48 PM EDT [facility] Creatinine 1.09 0.76 - 1.27 mg/dL 12/06/2024 1:48 PM EDT [facility] Sodium 140 136 - 145 mmol/L 12/06/2024 1:48 PM EDT [facility] Potassium 3.8 3.5 - 5.2 mmol/L 12/06/2024 1:48 PM EDT [facility] Chloride 102 98 - 107 mmol/L 12/06/2024 1:48 PM EDT [facility] CO2 26.8 22.0 - 29.0 mmol/L 12/06/2024 1:48 PM EDT [facility] Calcium 9.4 8.6 - 10.5 mg/dL 12/06/2024 1:48 PM EDT [facility] Total Protein 7.0 6.0 - 8.5 g/dL 12/06/2024 1:48 PM EDT [facility] Albumin 4.4 3.5 - 5.2 g/dL 12/06/2024 1:48 PM EDT [facility] ALT (SGPT) 29 1 - 41 U/L 12/06/2024 1:48 PM EDT [facility] AST (SGOT) 28 1 - 40 U/L 12/06/2024 1:48 PM EDT [facility] Alkaline Phosphatase 120(H) 39 - 117 U/L 12/06/2024 1:48 PM EDT [facility] Total Bilirubin 0.5 0.0 - 1.2 mg/dL 12/06/2024 1:48 PM EDT [facility] Globulin 2.6 gm/dL 12/06/2024 1:48 PM EDT [facility] Comment:Calculated Result A/G Ratio 1.7 g/dL 12/06/2024 1:48 PM EDT [facility] BUN/Creatinine Ratio 7.8 7.0 - 25.0 12/06/2024 1:48 PM EDT [facility] Anion Gap 11.2 5.0 - 15.0 mmol/L 12/06/2024 1:48 PM EDT [facility] eGFR 76.7 >60.0 mL/min/1.7 3 12/06/2024 1:48 PM EDT [facility] Blood Venipuncture / Unknown 12/06/2024 12:55 PM EDT 12/06/2024 12:55 PM EDT Narrative [facility] - 12/06/2024 1:48 PM EDT GFR Categories in Chronic Kidney Disease (CKD) GFR Category GFR (mL/min/1.73) Interpretation G1 90 or greater Normal or high (1) G2 60-89 Mild decrease (1) G3a 45-59 Mild to moderate decrease G3b 30-44 Moderate to severe decrease G4 15-29 Severe decrease G5 14 or less Kidney failure (1)In the absence of evidence of kidney disease, neither GFR category G1 or G2 fulfill the criteria for CKD. eGFR calculation 2020 CKD-EPI creatinine equation, which does not include race as a factor us Magdy Tripp MD LAB BLOOD ORDERABLES Fatuma ledesma Result [facility]
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
--- OUTSIDE RECORDS SUMMARY | 2024-12-06 11:55 | XMS_ITS | Encounter Summary ---
Author Organization 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 Social History Tobacco Use Types Packs/Day Years [...] on file documented as of this encounter Plan of Treatment Upcoming Encounters Date Type Department Care Team (Late st Contact Info) Description 12/10/2025 10:30 AM EST Appointment [address] [place] [id number] 12/10/2025 11:45 AM EST Office Visit [facility] HEMATOLOGY & ONCOLOGY [address] [facility] [address] [place] [phone] Magdy Tripp MD [address] [facility] [address] [place] [address] documented as of this encounter Procedures Procedure Name Priority Date/Time Associated Diagnosis Comments CBC WITH AUTO DIFFERENTIAL Routine 12/06/2024 12:55 PM EDT 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 SEDIMENTATION RATE Routine 12/06/2024 12 :55 PM EDT 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 CBC AND DIFFERENTIAL Routine 12/06/2024 12:55 PM EDT 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 C-REACTIVE PROTEIN Routine 12/06/2024 12 :55 PM EDT 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 COMPREHENSIVE METABOLIC PANEL Routine 12/06/2024 12:55 PM EDT 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 documented in this encounter Results * (ABNORMAL) CBC Auto Differential (12/06/2024 12:55 PM EDT) WBC 9.52 3.40 - 10.80 10*3/mm3 12/06/2024 12:59 PM EDT [facility] RBC 5.69 4.14 - 5.80 10*6/mm3 12/06/2024 12:59 PM EDT [facility] Hemoglobin 17.6 13.0 - 17.7 g/dL 12/06/2024 12:59 PM EDT [facility] Hematocrit 52.2(H) 37.5 - 51.0 % 12/06/2024 12:59 PM EDT [facility] MCV 91.7 79.0 - 97.0 fL 12/06/2024 12:59 PM EDT [facility] MCH 30.9 26.6 - 33.0 pg 12/06/2024 12:59 PM EDT [facility] MCHC 33.7 31.5 - 35.7 g/dL 12/06/2024 12:59 PM EDT [facility] RDW 12.8 12.3 - 15.4 % 12/06/2024 12:59 PM EDT [facility] RDW-SD 43.9 37.0 - 54.0 fl 12/06/2024 12:59 PM EDT [facility] MPV 9.9 6.0 - 12.0 fL 12/06/2024 12:59 PM EDT [facility] Platelets 196 140 - 450 10*3/mm3 12/06/2024 12:59 PM EDT [facility] Neutrophil % 74.9 42.7 - 76.0 % 12/06/2024 12:59 PM EDT [facility] Lymphocyte % 18.5(L) 19.6 - 45.3 % 12/06/2024 12:59 PM EDT [facility] Monocyte % 4.9(L) 5.0 - 12.0 % 12/06/2024 12:59 PM EDT [facility] Eosinophil % 1.4 0.3 - 6.2 % 12/06/2024 12:59 PM EDT [facility] Basophil % 0.2 0.0 - 1.5 % 12/06/2024 12:59 PM EDT [facility] Immature Grans % 0.1 0.0 - 0.5 % 12/06/2024 12:59 PM EDT [facility] Neutrophils, Absolute 7.13(H) 1.70 - 7.00 10*3/mm3 12/06/2024 12:59 PM EDT [facility] Lymphocytes, Absolute 1.76 0.70 - 3.10 10*3/mm3 12/06/2024 12:59 PM EDT [facility] Monocytes, Absolute 0.47 0.10 - 0.90 10*3/mm3 12/06/2024 12:59 PM EDT [facility] Eosinophils, Absolute 0.13 0.00 - 0.40 10*3/mm3 12/06/2024 12:59 PM EDT [facility] Basophils, Absolute 0.02 0.00 - 0.20 10*3/mm3 12/06/2024 12:59 PM EDT [facility] Immature Grans, Absolute 0.01 0.00 - 0.05 10*3/mm3 12/06/2024 12:59 PM EDT [facility] Blood Venipuncture / Unknown 12/06/2024 12:55 PM EDT 12/06/2024 12:55 PM EDT Magdy Tripp MD LAB BLOOD ORDERABLES Fatuma l Result [facility]
[address] [place] [address], [place] [phone] * (ABNORMAL) C-reactive Protein (12/06/2024 12:55 PM EDT) [facility] C-Reactive Protein 0.71(H) 0.00 - 0.50 mg/dL 12/06/2024 1:48 PM EDT [facility] Blood Venipuncture / Unknown 12/06/2024 12:55 PM EDT 12/06/2024 12:55 PM EDT Magdy Tripp MD LAB BLOOD ORDERABLES Fatuma l Result [facility]
[address] [place] [address], [place] [phone] * Sedimentation Rate (12/06/2024 12:55 PM EDT) [facility] Sed Rate 8 0 - 20 mm/hr 12/06/2024 1:29 PM EDT [facility] Blood Venipuncture / Unknown 12/06/2024 12:55 PM EDT 12/06/2024 12:55 PM EDT Magdy Tripp MD LAB BLOOD ORDERABLES Fatuma l Result [facility]
[address] [place] [address], * (ABNORMAL) Comprehensive Metabolic Panel (12/06/2024 12:55 PM EDT) Pathologist [facility] Glucose 137(H) 65 - 99 mg/dL 12/06/2024 1:48 PM EDT [facility] BUN 8.5 8.0 - 23.0 mg/dL 12/06/2024 1:48 PM EDT [facility] Creatinine 1.09 0.76 - 1.27 mg/dL 12/06/2024 1:48 PM EDT [facility] Sodium 140 136 - 145 mmol/L 12/06/2024 1:48 PM EDT [facility] Potassium 3.8 3.5 - 5.2 mmol/L 12/06/2024 1:48 PM EDT [facility] Chloride 102 98 - 107 mmol/L 12/06/2024 1:48 PM EDT [facility] CO2 26.8 22.0 - 29.0 mmol/L 12/06/2024 1:48 PM EDT [facility] Calcium 9.4 8.6 - 10.5 mg/dL 12/06/2024 1:48 PM EDT [facility] Total Protein 7.0 6.0 - 8.5 g/dL 12/06/2024 1:48 PM EDT [facility] Albumin 4.4 3.5 - 5.2 g/dL 12/06/2024 1:48 PM EDT [facility] ALT (SGPT) 29 1 - 41 U/L 12/06/2024 1:48 PM EDT [facility] AST (SGOT) 28 1 - 40 U/L 12/06/2024 1:48 PM EDT [facility] Alkaline Phosphatase 120(H) 39 - 117 U/L 12/06/2024 1:48 PM EDT [facility] Total Bilirubin 0.5 0.0 - 1.2 mg/dL 12/06/2024 1:48 PM EDT [facility] Globulin 2.6 gm/dL 12/06/2024 1:48 PM EDT [facility] Comment:Calculated Result A/G Ratio 1.7 g/dL 12/06/2024 1:48 PM EDT [facility] BUN/Creatinine Ratio 7.8 7.0 - 25.0 12/06/2024 1:48 PM EDT [facility] Anion Gap 11.2 5.0 - 15.0 mmol/L 12/06/2024 1:48 PM EDT [facility] eGFR 76.7 >60.0 mL/min/1.7 3 12/06/2024 1:48 PM EDT [facility] Blood Venipuncture / Unknown 12/06/2024 12:55 PM EDT 12/06/2024 12:55 PM EDT [facility] - 12/06/2024 1:48 PM EDT GFR [...] MD LAB BLOOD ORDERABLES Fatuma ledesma Result [facility]
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
--- OUTSIDE RECORDS SUMMARY | 2024-12-12 13:00 | XMS_ITS ---
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 Other Current Plans OP CENTRAL VENOUS ACCESS DEVICE ACCESS, CARE, AND MAINTENANCE (CVAD)* Plan Start Date:05/28/2022 Plan Provider:Magdy Tripp MD Linked Problems Encounter for central line c are Treatment Medications No medications scheduled. Past Treatment and Therapy Plans ONCOLOGY TREATMENT Plan Name Start Date Discontinue Date Treatment Medications Discontinue Reason Plan Provider Cycles OP HODGKIN LYMPHOMA ABVD DOXOrubicin / Dacarbazine / VinBLAStine / Bleomycin 3 12/10/2022 Bleomycin (BLENOXANE) chemo IVPBdacarbazine (DTIC) chemo IVPBDOXOrubicin (ADRIAMYCIN)vinBL AStine (VELBAN) chemo IVPB Therapy Complete Magdy Sandoval MD 6 of 6 cycles started Therapy Plan 2 Plan Name Start Date Discontinue Date Treatment Medications Discontinue Reason Plan Provider OP CVAD Occlusion - Alteplase 10/15/2022 11/24/2024 No medications scheduled. Other - Enter Reason in Comments Magdy Tripp MD Lifetime Dose Tracking * Chemical Lifetime Dose Automatic Entry Manual Entr y Doxorubicin 297.392 mg/m2 (624 mg) 297.392 mg/m2 (624 mg) 0 mg/m2 (0 mg) Bleomycin 252 Units 252 Units 0 Units
--- OUTSIDE RECORDS SUMMARY | 2024-12-12 13:00 | XMS_ITS ---
Author Organization Unknown TREATMENT PLAN [facility] Start Date Provider Encounter for Check-up [id number] [facility]
--- OUTSIDE RECORDS SUMMARY | 2024-12-12 13:00 | XMS_ITS | Encounter Summary ---
[facility] Address [address] [place] [address] Care Team Providers Care Small Business Director Name Role Phone Daniel Scanlon MD Primary Care Provider [phone] Encounter Details Date Type Department Care Team (Latest Contact Info) Description 12/06/2024 Travel Social History Tobacco Use Types Packs/Day Years [...] Info) Description 12/10/2025 10:30 AM EST Appointment [facility] [address] [place] [address] 12/10/2025 11:45 AM EST Office Visit [facility] & [facility]OGY [address] [facility] [address] [place] [address] Magdy Tripp MD [address] [place] [address] documented as of this encounter Visit Diagnoses Not on filedocumented in this encounter Additional Health Concerns Assessment Noted Time PHQ-2 Depression Total Score: 1 02/22/19 24 9:31 AM EST documented as of this encounter Care Teams Small Business Director Relationship Specialty Start Date End Date Daniel Scanlon MD [address] [facility] [address] [place] [address] PCP - General Internal Medicine 04/09/22 documented as of this encounter
--- OUTSIDE RECORDS SUMMARY | 2024-12-12 13:00 | XMS_ITS | Clinical Summary ---
Author Organization [facility] Address [address] [place] [address] Phone [email or web address] Care Team Providers Care Diesel Bus Mechanic Name Role Phone Unavailable Primary Care Provider Unavailabl e Allergies Active Allergy Reactions Criticality Noted Date Comments Gabapentin Dizziness 08/20/2022 Medications omeprazole (PriLOSEC) [address] capsule 10/24/2017 Active meloxicam (MOBIC) 15 MG tablet Take 15 mg by mouth 1 (one) time each day. Active atorvastatin (LIPITOR) 10 MG tablet Take 10 mg by mouth 1 (one) time each day. Active Active Problems No known active problems Social History Tobacco Use Types Packs/Day Years Used Date Smoking Tobacco: Never Assessed Intimate Partner Violence Answer Date R ecorded Insults You Not on file 05/21/2020 Threatens You Not on file 05/21/2020 Screams at You Not on file 05/21/2020 Physically Hurt Not on file 05/21/2020 Intimate Partner Violence Score Not on file 05/21/2020 Depression Answer Date Recorded PHQ Total Score 0 11/13/2022 Stress Answer Date Recorded Stress in your Life Not on file 12/13/2023 Dealing with Stress 3 12/13/2023 Sex and Gender Information Value Date Recorded Sex Assigned at Not on file Legal Sex Male 7:37 AM CDT Gender Identity Not on file Sexual Orientation Not on file Last Filed Vital Signs Vital Sign Reading Time Taken Comments Blood Pressure 124/80 11/13/2022 1:37 PM EDT Pulse 97 11/13/2022 1:37 PM EDT Temperature 36.4 C (97.6 F) 03/28/2021 9:10 AM EST Respiratory Rate 18 11/13/2022 1:37 PM EDT Oxygen Saturation 96% 11/13/2022 1:37 PM EDT Inhaled Oxygen Concentration - - Weight 93.4 kg (206 lb) 07/01/2016 1:28 PM CDT Height 177.8 cm (5' 10 ) 07/01/2016 1:28 PM CDT Body Mass Index 29.56 07/01/2016 1:28 PM CDT Plan of Treatment Health Maintenance Due Date Last Done Comments CT Colonography 1962 Colonoscopy 1962 Colorectal Cancer Screening Combo 1962 DNA Cologuard 1962 Dental Cleaning/Exam 1962 FIT or FOBT Test 1962 Sigmoidoscopy 1962 Tetanus Diphtheria and Pertu ssis Immunization (1 - Tdap) 1981 Pneumococcal: 50+ Years (1 o f 1 - PCV) 2012 Zoster Immunization (1 of 2) 2012 Covid-19 Immunization (1 - 2 season) 2024 Influenza Immunization (#1) 2024 HIB Immunization Aged Out No longer e ligible based on patient's age to complete this topic HPV Immunization Aged Out No longer e ligible based on patient's age to complete this topic Hepatitis A Immunization Aged Out No longer eligible based on patient's age to complete this topic Hepatitis B Immunization Aged Out No longer eligible based on patient's age to complete this topic Polio Immunization Aged Out No longer eligible based on patient's age to complete this topic Insurance [facility] Address: [address] [place] [address] [facility] [id number] [place] [address]
--- OUTSIDE RECORDS SUMMARY | 2024-12-12 13:01 | XMS_ITS | Clinical Summary ---
Author Organization [facility] Address [address] [place] [address] Care Team Providers Care Surgical Attendant Name Role Phone Daniel Scanlon MD Primary Care Provider [phone] Allergies Active Allergy Reactions Criticality Noted Date Comments Gabapentin Dizziness Medium 08/20/2022 Medications atorvastatin (LIPITOR) 10 MG tablet 03/02/19 23 Active meloxicam (MOBIC) 15 MG tablet 03/06/19 23 Active Testosterone Cypionate (DEPOTESTOTERONE CYPIONATE) 200 MG/ML injection 03/30/19 23 Active cholecalciferol (VITAMIN D3) 25 MCG (1000 UT) tablet Take 1 tablet by mouth Daily. Active lidocaine-prilocai ne (EMLA) 2.5-2.5 % cream Apply 1 application topically to the appropriate area as directed As Needed for Injection Site Pain. Apply to your port 45-60 minutes before access then cover the area with plastic wrap. 5 g 5 05/28/19 23 Active ondansetron ODT (ZOFRAN-ODT) [address] 1 tablet on the tongue Every 8 (Eight) Hours As Needed for Nausea or Vomiting. 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 90 capsule 3 04/05/19 24 Active lidocaine-prilocai ne (EMLA) 2.5-2.5 % cream Apply 1 Application topically to the appropriate area as directed Every 2 (Two) Hours As Needed for Mild Pain. 5 g 3 04/05/19 24 Active ibuprofen (ADVIL,MOTRIN) 800 MG tablet 1 tablet. 02/12/19 24 Active omeprazole (priLOSEC) 40 MG capsule 10/27/19 24 Active naproxen (NAPROSYN) 500 MG tablet Take 1 tablet by mouth Daily. 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 12/06/2024 11:45 AM EDT Office Visit [facility] HEMAT[facility] & ONCOLOGY [address] [place] [address] Magdy Tripp MD 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 (Primary Dx) 12/06/2024 10:30 AM EDT - 12/06/2024 11:59 PM EDT Hospital Encounter [facility] AT [address] [place] [address] 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 Discharge Disposition: Home or Self Care 12/06/2024 Travel 09/20/2024 Telephone [facility] HEMATOLOGY & ONCOLOGY [address] [facility] [address] [place] [address] Magdy Tripp MD 09/19/2024 [facility] NEUROLOGY [address] [place] [address] Ortega Borden MD [facility] 09/18/2024 [facility] HEMATOLOGY & ONCOLOGY [address] [place] [address] ARI - CLINICAL from Last 3 Months Family History Medical History Relation Name Comments No Known Problems Daughter Anal fissures Father Cancer Father Other Father Mouth Cancer Throat cancer Father Heart attack Mother Thyroid disease Sister No Known Problems Son Relation Name Status Comments Daughter Alive Father Mother Alive Sister Alive Son Alive Social History Tobacco Use Types Packs/Day Years Used Date Smoking Tobacco: Every Day Cigarettes 1 41 Passive Smoke Exposure: Current Smokeless Tobacco: Never Tobacco Cessation:Ready to Q uit: No; Counseling Given: Yes Comments:Smoked since age 20 Alcohol Use Standard [...] Mass Index 31.1 12/06/2024 11:55 AM EDT Plan of Treatment Upcoming Encounters Date Type Department Care Team (Late st Contact Info) Description 12/10/2025 10:30 AM EST Appointment [facility] [address] [facility] [address] [place] [phone] 12/10/2025 11:45 AM EST Office Visit [facility] HEMAT[facility] & ONCOLOGY [address] [facility] [address] [place] [phone] Magdy Tripp MD [address] [facility] [address] [place] [id number] Health Maintenance Due Date Last Done Comments Pneumococcal Vaccine 50+ (1 of 2 - PCV) 1981 TDAP/TD VACCINES (1 - Tdap) 1981 ZOSTER VACCINE (1 of 2) 1981 COLOGUARD 10/11/2007 COLON CANCER SCREENING 5 YEA R SIGMOIDOSCOPY 10/11/2007 COLONOSCOPY 10/11/2007 COLORECTAL CANCER SCREENING 10/11/2007 CT COLONOGRAPHY 10/11/2007 FECAL OCCULT BLOOD TEST 10/11/2007 FIT Testing (1 year) 10/11/2007 ANNUAL WELLNESS VISIT 04/17/2022 HEPATITIS C SCREENING 04/17/2022 INFLUENZA VACCINE 09/08/2024 LUNG CANCER SCREENING 12/06/2025 12/06/2024 , 06/08/2024, 12/09/2023, Additional history exists Medical Devices Implanted Type Area Doctor Chiropractic Device Identifier Shelf Expiration Date Model / Serial / Lot Prt Intro Smartportpls Vasc/Interv Fill Detach Plstc 8f - [id number] Implanted:Qty: 1 on 05/20/2022 by Cortes Gregory MD at [facility] Implant Right: Internal Jugular [employer] 03/10/2025 [id number] / / [id number] Procedures Procedure Name Priority Date/Time Associated Diagnosis Comments CBC AND DIFFERENTIAL Routine 12/06/2024 12:55 PM EDT 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 CBC WITH AUTO DIFFERENTIAL Routine 12/06/2024 12:55 [...] of lymph nodes of multiple regions CT ABDOMEN PELVIS W CONTRAST Routine 12/06/2024 11:38 AM EDT 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 from Last 3 Months Results * (ABNORMAL) CBC Auto Differential (12/06/2024 12:55 PM EDT) Pathologist [facility] WBC 9.52 3.40 - 10.80 10*3/mm3 12/06/2024 12:59 PM EDT [facility] RBC 5.69 4.14 - 5.80 10*6/mm3 12/06/2024 12:59 PM EDT [facility] Hemoglobin 17.6 13.0 - 17.7 g/dL 12/06/2024 12:59 PM EDT [facility] Hematocrit 52.2(H) 37.5 - 51.0 % 12/06/2024 12:59 PM EDT [facility] MCV 91.7 79.0 - 97.0 fL 12/06/2024 12:59 PM EDT [facility] MCH 30.9 26.6 - 33.0 pg 12/06/2024 12:59 PM EDT [facility] MCHC 33.7 31.5 - 35.7 g/dL 12/06/2024 12:59 PM EDT [facility] RDW 12.8 12.3 - 15.4 % 12/06/2024 12:59 PM EDT [facility] RDW-SD 43.9 37.0 - 54.0 fl 12/06/2024 12:59 PM EDT [facility] MPV 9.9 6.0 - 12.0 fL 12/06/2024 12:59 PM EDT [facility] Platelets 196 140 - 450 10*3/mm3 12/06/2024 12:59 PM EDT [facility] Neutrophil % 74.9 42.7 - 76.0 % 12/06/2024 12:59 PM EDT [facility] Lymphocyte % 18.5(L) 19.6 - 45.3 % 12/06/2024 12:59 PM EDT [facility] Monocyte % 4.9(L) 5.0 - 12.0 % 12/06/2024 12:59 PM EDT [facility] Eosinophil % 1.4 0.3 - 6.2 % 12/06/2024 12:59 PM EDT [facility] Basophil % 0.2 0.0 - 1.5 % 12/06/2024 12:59 PM EDT [facility] Immature Grans % 0.1 0.0 - 0.5 % 12/06/2024 12:59 PM EDT [facility] Neutrophils, Absolute 7.13(H) 1.70 - 7.00 10*3/mm3 12/06/2024 12:59 PM EDT [facility] Lymphocytes, Absolute 1.76 0.70 - 3.10 10*3/mm3 12/06/2024 12:59 PM EDT [facility] Monocytes, Absolute 0.47 0.10 - 0.90 10*3/mm3 12/06/2024 12:59 PM EDT [facility] Eosinophils, Absolute 0.13 0.00 - 0.40 10*3/mm3 12/06/2024 12:59 PM EDT [facility] Basophils, Absolute 0.02 0.00 - 0.20 10*3/mm3 12/06/2024 12:59 PM EDT [facility] Immature Grans, Absolute 0.01 0.00 - 0.05 10*3/mm3 12/06/2024 12:59 PM EDT [facility] Blood Venipuncture / Unknown 12/06/2024 12:55 PM EDT 12/06/2024 12:55 PM EDT us Magdy Tripp MD LAB BLOOD ORDERABLES Fatuma l Result [facility]
[address] [place] [address], * Sedimentation Rate (12/06/2024 12:55 PM EDT) Sed Rate 8 0 - 20 mm/hr 12/06/2024 1:29 PM EDT [facility] Blood Venipuncture / Unknown 12/06/2024 12:55 PM EDT 12/06/2024 12:55 PM EDT Magdy Tripp MD LAB BLOOD ORDERABLES Fatuma l Result [facility]
[address] [place] [address], * (ABNORMAL) C-reactive Protein (12/06/2024 12:55 PM EDT) C-Reactive Protein 0.71(H) 0.00 - 0.50 mg/dL 12/06/2024 1:48 PM EDT [facility] Blood Venipuncture / Unknown 12/06/2024 12:55 PM EDT 12/06/2024 12:55 PM EDT Magdy Tripp MD LAB BLOOD ORDERABLES Fatuma l Result Performing Organization Address City/[facility]/ZIP Co de Phone Number [facility]
[address] [place] [address], * (ABNORMAL) Comprehensive Metabolic Panel (12/06/2024 12:55 PM EDT) Glucose 137(H) 65 - 99 mg/dL 12/06/2024 1:48 PM EDT [facility] BUN 8.5 8.0 - 23.0 mg/dL 12/06/2024 1:48 PM EDT [facility] Creatinine 1.09 0.76 - 1.27 mg/dL 12/06/2024 1:48 PM EDT [facility] Sodium 140 136 - 145 mmol/L 12/06/2024 1:48 PM EDT [facility] Potassium 3.8 3.5 - 5.2 mmol/L 12/06/2024 1:48 PM EDT [facility] Chloride 102 98 - 107 mmol/L 12/06/2024 1:48 PM EDT [facility] CO2 26.8 22.0 - 29.0 mmol/L 12/06/2024 1:48 PM EDT [facility] Calcium 9.4 8.6 - 10.5 mg/dL 12/06/2024 1:48 PM EDT [facility] Total Protein 7.0 6.0 - 8.5 g/dL 12/06/2024 1:48 PM EDT [facility] Albumin 4.4 3.5 - 5.2 g/dL 12/06/2024 1:48 PM EDT [facility] ALT (SGPT) 29 1 - 41 U/L 12/06/2024 1:48 PM EDT [facility] AST (SGOT) 28 1 - 40 U/L 12/06/2024 1:48 PM EDT [facility] Alkaline Phosphatase 120(H) 39 - 117 U/L 12/06/2024 1:48 PM EDT [facility] Total Bilirubin 0.5 0.0 - 1.2 mg/dL 12/06/2024 1:48 PM EDT [facility] Globulin 2.6 gm/dL 12/06/2024 1:48 PM EDT [facility] Comment:Calculated Result A/G Ratio 1.7 g/dL 12/06/2024 1:48 PM EDT [facility] BUN/Creatinine Ratio 7.8 7.0 - 25.0 12/06/2024 1:48 PM EDT [facility] Anion Gap 11.2 5.0 - 15.0 mmol/L 12/06/2024 1:48 PM EDT [facility] eGFR 76.7 >60.0 mL/min/1.7 3 12/06/2024 1:48 PM EDT [facility] Blood Venipuncture / Unknown 12/06/2024 12:55 PM EDT 12/06/2024 12:55 PM EDT [facility] - 12/06/2024 1:48 PM EDT GFR [...] MD LAB BLOOD ORDERABLES Fatuma ledesma Result [facility]
[address] [place] [address], * CT Abdomen Pelvis With Contrast (12/06/2024 [...] MD 12/06/2024 4:29 PM EDT Workstation ID: [id number] Narrative 12/06/2024 4:[address] ABDOMEN [...] MD 12/06/2024 4:29 PM EDT Workstation ID: [id number] us Magdy Tripp MD IMG CT ORDERABLES [...] MD 12/06/2024 4:29 PM EDT Workstation ID: [id number] Narrative 12/06/2024 4:[address] ABDOMEN [...] MD 12/06/2024 4:29 PM EDT Workstation ID: [id number] Magdy Tripp MD IMG CT ORDERABLES Final R esult * CT Soft Tissue Neck With Contrast [...] MD 12/06/2024 4:29 PM EDT Workstation ID: [id number] [facility] 12/06/2024 4:[address] ABDOMEN PELVIS [...] MD 12/06/2024 4:29 PM EDT Workstation ID: [id number] us Magdy Tripp MD IMG CT ORDERABLES Final R esult from Last 3 Months Insurance [facility] PPO Member Subscriber Plan / Payer (Ef fective 2024-Present) Name:Macho Roberts Relation to Subscriber:Spouse Name:PETE ROBERTS Date of :1974 (Home) Address: [address] [place] [id number] Payer ID:[id number] (NAIC) Type:Not on file Address: [facility] [id number] MEDICARE A & B Care Teams Surgical Attendant Relationship Specialty Start Date End Date Daniel Scanlon MD [address] [facility] [address] [address] PCP - General Internal Medicine 04/09/22
--- OUTSIDE RECORDS SUMMARY | 2024-12-12 13:01 | XMS_ITS | Encounter Summary ---
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 Social History Tobacco Use Types Packs/Day Years Used Date Smoking Tobacco: Every Day Cigarettes 1 41 Smokeless Tobacco: Never Comments:Smoked since age 20 Alcohol Use Standard Drinks/Week Comments Yes 0 (1 standard drink = 0.6 oz [...] Independently no 05/20/2022 PHQ-2 Answer Date Recorded Retired PHQ-9: Brief Depression Severity Measure Score 0 06/11/2022 Sex and Gender Information Value Date Recorded Sex Assigned at Not on file Legal Sex Male 2:11 PM EST Gender Identity Not on file Sexual Orientation Not on file documented as of this encounter Plan of Treatment Upcoming Encounters Date Type Department Care Team (Late st Contact Info) Description 12/10/2025 10:30 AM EST Appointment [facility] [address] [facility] [address] [place] [phone] 12/10/2025 11:45 AM EST Office Visit [facility] [address] [facility] [address] [place] [phone] Magdy Tripp MD [address] [facility] [address] [place] [address] documented as of this encounter Visit Diagnoses Diagnosis 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
--- OUTSIDE RECORDS SUMMARY | 2024-12-12 13:01 | XMS_ITS | Clinical Summary ---
Author Organization [facility] Address [facility] [place] [place] [address] Care Team Providers Care Head Refrigeration Engineer Name Role Phone Pcp, No Primary Care Provider [phone] Source Comments This information has been disclosed to you from confidential records protectedfrom disclosure by state law. You shall make no further disclosure of thisinformation without the specific, written, and informed release of theindividual to whom it pertains, or as otherwise permitted by law. A generalauthorization for the release of medical or other information is not sufficientfor the purposes of therelease of HIV test results or diagnoses. [id number] Allergies No known active allergies Medications OMEPRAZOLE (PRILOSEC ORAL) Take by mouth. Active fluorouracil (EFUDEX) 5 % creamIndication s:BCC (basal cell carcinoma) Apply topically 2 times a day. 40 g 3 4 Active Active Problems No known active problems Social History Tobacco Use Types Packs/Day Years Used Date Smoking Tobacco: Every Day Alcohol Use Standard Drinks/Week Comments Yes 0 (1 standard drink = 0.6 oz pur e alcohol) Sex and Gender Information Value Date Recorded Sex Assigned at Not on file Legal Sex Male 10:14 AM EDT Gender Identity Not on file Sexual Orientation Not on file Plan of Treatment Not on file Care Teams Head Refrigeration Engineer Relationship Specialty Start Date End Date Pcp, No No Address PCP - General 05/18/13
--- NOTE | 2024-12-12 13:09 | ECG_ITS ---
APPROVED REPORT Exam: Resting ECG HR:78 bpm ECG Measurements Heart Rate 78 AXES DE 163 P 50 QRSd 116 QRS -44 QT 392 T 64 QTc 425 Conclusion SINUS RHYTHM Left atrial abnormality LEFT AXIS DEVIATION [QRS AXIS < -30] Late R wave progression ABNORMAL ECG UNCONFIRMED REPORT Electronically signed by : Levi Magallon MD 12/13/2024 07:59:24
== END 2024-12-12 23:59 | disposition home or self-care (01) ==
LOC: RT 12:52
PROVIDERS: PCP Internal Medicine; Visit Provider Internal Medicine
DX: R94.31 Abnormal electrocardiogram [ECG] [EKG] (principal); I25.10 Atherosclerotic heart disease of native coronary artery without angina pectoris; I10 Essential (primary) hypertension
CPT/HCPCS: 93005